=== PATIENT | female | born 1945 | race Caucasian/White ===

== ENCOUNTER 2016-07-30 17:50 | Inpatient (IN) | payer BC, OTHER ==
[~2016-07-30] VITALS: Ht 139.7 cm; Wt 87.5 kg
[~2016-07-30 17:50] MED LIST: ASPI81TA21 PO; CARV25TA2 PO; CHOL100010 PO; ESCI10TA17 PO; LISI-461 PO; MIRT15TA PO; MULTTAB PO; SPIR1TAB71 PO
[2016-07-30] MEDS ORDERED: SODIUM CHLORIDE 0.9% 1000ML 1,000 ML IV SCH (19:16)
--- NOTE | 2016-07-30 20:01 | DIAGNOSTIC IMAGING REPORT ---
CHEST ONE VIEW PORTABLE CLINICAL HISTORY: Stroke COMPARISON STUDY: No previous studies for comparison. FINDINGS: The heart is mildly enlarged. There is no failure. There is no focal pulmonary consolidation. There are no pleural effusions.[ IMPRESSION: No active disease in the chest. Electronically signed by: Rigo Fontana M.D. 07/30/2016 8:00 PM Dictated Date/Time: 07/30/2016 8:00 PM
--- NOTE | 2016-07-30 20:28 | DIAGNOSTIC IMAGING REPORT ---
CT HEAD WITHOUT CONTRAST (CT) CLINICAL HISTORY: Stroke COMPARISON STUDY: 02/19/2016 TECHNIQUE: Axial CT of the brain is performed from the vertex to the skull base. IV contrast was not administered for this examination. CT DOSE: 994.59 mGy.cm FINDINGS: No intra or extra-axial mass lesions are visualized. There is no CT evidence of acute cortical infarction. There is no evidence of midline shift. There is no acute hemorrhage. No calvarial fractures are visualized. There are patchy white matter hypodensities likely on a small vessel basis. There is no evidence of pathologic ventricular dilatation. There is mild right maxilla sinus mucosal thickening with chronic maxillary sinus wall thickening IMPRESSION: No acute intracranial findings Electronically signed by: Rigo Fontana M.D. 07/30/2016 8:27 PM Dictated Date/Time: 07/30/2016 8:26 PM
[2016-07-30 21:00] LABS: BASO % 0.2 %; BASO ABS # 0.02 K/uL (0-0.2); COMPLETE YES; EOS % 1.4 %; HEMATOCRIT 40.4 % (37-47); IG% 0.4 %; LYMPH % 37.8 %; LYMPH ABS # 3.03 K/uL (1.2-3.4); MEAN CELL VOLUME 92.9 fL (80-100); MEAN CORPUSCULAR HEMOGLOBIN 31.5 pg (25-34); MEAN CORPUSCULAR HGB CONC 33.9 g/dl (32-36); MEAN PLATELET VOLUME 9.3 fL (7.4-10.4); MONO % 8.9 %; NEUT % 51.3 %; PLATELET COUNT 207 K/uL (130-400); RED BLOOD COUNT 4.35 M/uL (4.2-5.4); WHITE BLOOD COUNT 8.01 K/uL (4.8-10.8)
[2016-07-30 21:08] LABS: BLOOD UREA NITROGEN 23 mg/dl (7-18); BUN/CREATININE RATIO 30.1 (10-20); CALCIUM 8.8 mg/dl (8.5-10.1); CARBON DIOXIDE 29 mmol/L (21-32); CHLORIDE 105 mmol/L (98-107); CREATININE 0.78 mg/dl (0.60-1.20); GLUCOSE 86 mg/dl (70-99); POTASSIUM 3.7 mmol/L (3.5-5.1); SODIUM 142 mmol/L (136-145)
[2016-07-30 21:12] LABS: PROTHROMBIN TIME (PATIENT) 11.1 SECONDS (9.0-12.0)
[2016-07-30] MEDS ORDERED: ASPIRIN 81 MG CHEW PO STA (21:24)
[2016-07-30] MEDS ORDERED: SODIUM CHLORIDE 0.9% 500ML 500 ML IV STA (21:25)
[2016-07-30 21:38] LABS: URINE APPEARANCE CLEAR (CLEAR); URINE BILIRUBIN NEG (NEG); URINE COLOR YELLOW; URINE NITRITE NEG (NEG); UROBILINOGEN NEG (NEG)
[2016-07-30 21:43] LABS: MANUAL MICROSCOPIC REQUIRED? NO; REVIEW REQ? NO
--- NOTE | 2016-07-30 22:14 | EMERGENCY ROOM VISIT NOTE ---
History Report prepared by Jayne: Namrata Chaudhary Under the Supervision of: Dr. North Albright M.D. First contact with patient: 19:16 Chief Complaint: NEURO SYMPTOMS Stated Complaint: LT ARM TINGLING, IMPARIED SPEECH, CONFUSION Nursing Triage Summary: Patient ambulatory to triage with the use of a cane and with her son. Patient states "My son is the one who said that I had to come here." Son states "Her left arm, for the last week or so, has been tingling and hurting her. She woke up Friday morning, saying there was somebody in her bed and that her arm was hurting, like someone punched her. She was really pale yesterday and not really coherent. She was groggy and unsteady on her feet. 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 Her speech is better today but she is tired and emotional." History of Present Illness The patient is a 70 year old female who presents to the Emergency Room with complaints of persistent neuro symptoms that began yesterday. The patient's son states that yesterday the patient appeared pale yesterday and was fatigued. He states that the patient has been increasingly confused recently. The patient's son states that that yesterday the patient began slurring her speech and had difficulty finishing her sentences. The patient's son states that the patient has been drowsy, and has not been herself. He states that the patient has been diagnosed with Alzheimer's recently, so he is unsure what may be related to the Alzheimer's. The patient's son states that the patient has complained of left arm pain and numbness and tingling to the arm. He states that her PCP told the patient that she had carpal tunnel. The patient's son states that he consulted the patient's PCP today and was instructed to bring the patient to the emergency department for further evaluation. Pt denies LOC, headache, fevers, chills, diaphoresis, visual changes, neck pain, chest pain, breathing difficulties, nausea, vomiting, abdominal pain, back pain, melena, hematochezia, urinary symptoms, lymphadenopathy, rash, or other complaints. Source of History: patient Onset: yesterday Position: other (global) Quality: other (neuro symptoms) Timing: other (persistent) Associated Symptoms: + fatigue Note: Associated Symptoms: increasingly confused, drowsy, slurring speech, difficulty finishing sentences. Review of Systems See HPI for pertinent positives and negatives. A total of ten systems were reviewed and were otherwise negative. Past Medical & Surgical Medical Problems: (1) Cognitive changes (2) Hypertension (3) Hypertension Family History No pertinent family history Social History Smoking Status: Former Smoker Alcohol Use: none Drug Use: none Marital Status: Housing Status: lives with family Occupation Status: retired Current/Historical Medications Scheduled Carvedilol (Coreg), 1 TAB PO BID Lisinopril (Zestril), 10 MG PO DAILY Spironolactone & Hydrochloroth (Spironolactone/Hydrochlor), 1 TAB PO DAILY Allergies Coded Allergies: No Known Allergies (Unverified , 07/30/16) Physical Exam Vital Signs Date Time Temp Pulse Resp B/P Pulse Ox O2 Delivery O2 Flow Rate FiO2 07/30/16 22:08 54 07/30/16 21:09 54 16 131/70 96 Room Air 07/30/16 20:00 55 18 146/68 98 Room Air 07/30/16 19:59 98 Room Air 07/30/16 18:05 36.5 57 18 137/84 97 Room Air Physical Exam GENERAL: Awake, alert, tired-appearing, in no distress. Speech is soft. HENT: Normocephalic, atraumatic. Oropharynx unremarkable. EYES: Normal conjunctiva. Sclera non-icteric. PERRL. EOMI. NECK: Supple. No nuchal rigidity. FROM. No JVD. RESPIRATORY: Clear to auscultation. CARDIAC: Regular rate, normal rhythm. Extremities warm and well perfused. Pulses equal. ABDOMEN: Soft, non-distended. No tenderness to palpation. No rebound or guarding. No masses. RECTAL: Deferred. MUSCULOSKELETAL: Chest examination reveals no tenderness. The back is symmetrical on inspection without obvious abnormality. There is no CVA tenderness to palpation. No joint edema. LOWER EXTREMITIES: 1+ lower extremity edema, chronic venous discoloration. Calves are equal size bilaterally and non-tender. NEURO: Normal sensorium. No sensory or motor deficits noted. No drift. SKIN: No rash or jaundice noted. Medical Decision & Procedures ER Provider Diagnostic Interpretation: X ray results as stated below per my interpretation and radiologist interpretation. Other radiology results as stated below per my review and radiologist interpretation CT HEAD WITHOUT CONTRAST (CT) CLINICAL HISTORY: Stroke COMPARISON STUDY: 02/19/2016 TECHNIQUE: Axial CT of the brain is performed from the vertex to the skull base. IV contrast was not administered for this examination. CT DOSE: 994.59 mGy.cm FINDINGS: No intra or extra-axial mass lesions are visualized. There is no CT evidence of acute cortical infarction. There is no evidence of midline shift. There is no acute hemorrhage. No calvarial fractures are visualized. There are patchy white matter hypodensities likely on a small vessel basis. There is no evidence of pathologic ventricular dilatation. There is mild right maxilla sinus mucosal thickening with chronic maxillary sinus wall thickening IMPRESSION: No acute intracranial findings Electronically signed by: Rigo Fontana M.D. 07/30/2016 8:27 PM Dictated Date/Time: 07/30/2016 8:26 PM CHEST ONE VIEW PORTABLE CLINICAL HISTORY: Stroke COMPARISON STUDY: No previous studies for comparison. FINDINGS: The heart is mildly enlarged. There is no failure. There is no focal pulmonary consolidation. There are no pleural effusions.[ IMPRESSION: No active disease in the chest. Electronically signed by: Rigo Fontana M.D. 07/30/2016 8:00 PM Dictated Date/Time: 07/30/2016 8:00 PM Laboratory Results 07/30/16 20:33 Red Blood Count 4.35, Mean Corpuscular Volume 92.9, Mean Corpuscular Hemoglobin 31.5, Mean Corpuscular Hemoglobin Concent 33.9, Mean Platelet Volume 9.3, Neutrophils (%) (Auto) 51.3, Lymphocytes (%) (Auto) 37.8, Monocytes (%) (Auto) 8.9, Eosinophils (%) (Auto) 1.4, Basophils (%) (Auto) 0.2, Neutrophils # (Auto) 4.11, Lymphocytes # (Auto) 3.03, Monocytes # (Auto) 0.71, Eosinophils # (Auto) 0.11, Basophils # (Auto) 0.02 07/30/16 20:33 Test 07/30/16 19:35 07/30/16 20:33 07/30/16 20:39 07/30/16 21:25 Bedside Glucose 85 mg/dl (70-90) White Blood Count 8.01 K/uL (4.8-10.8) Red Blood Count 4.35 M/uL (4.2-5.4) Hemoglobin 13.7 g/dL (12.0-16.0) Hematocrit 40.4 % (37-47) Mean Corpuscular Volume 92.9 fL (80-100) Mean Corpuscular Hemoglobin 31.5 pg (25-34) Mean Corpuscular Hemoglobin Concent 33.9 g/dl (32-36) Platelet Count 207 K/uL (130-400) Mean Platelet Volume 9.3 fL (7.4-10.4) Neutrophils (%) (Auto) 51.3 % Lymphocytes (%) (Auto) 37.8 % Monocytes (%) (Auto) 8.9 % Eosinophils (%) (Auto) 1.4 % Basophils (%) (Auto) 0.2 % Neutrophils # (Auto) 4.11 K/uL (1.4-6.5) Lymphocytes # (Auto) 3.03 K/uL (1.2-3.4) Monocytes # (Auto) 0.71 K/uL (0.11-0.59) Eosinophils # (Auto) 0.11 K/uL (0-0.5) Basophils # (Auto) 0.02 K/uL (0-0.2) RDW Standard Deviation 47.6 fL (36.4-46.3) RDW Coefficient of Variation 14.0 % (11.5-14.5) Immature Granulocyte % (Auto) 0.4 % Immature Granulocyte # (Auto) 0.03 K/uL (0.00-0.02) Prothrombin Time 11.1 SECONDS (9.0-12.0) Prothromb Time International Ratio 1.0 (0.9-1.1) Activated Partial Thromboplast Time 24.9 SECONDS (21.0-31.0) Partial Thromboplastin Ratio 1.0 Anion Gap 8.0 mmol/L (3-11) Est Creatinine Clear Calc Drug Dose 61.1 ml/min Estimated GFR () 88.0 Estimated GFR (Non- 76.0 BUN/Creatinine Ratio 30.1 (10-20) Calcium Level 8.8 mg/dl (8.5-10.1) Total Creatine Kinase 37 U/L (26-192) Creatine Kinase MB < 0.5 ng/ml (0.5-3.6) Creatine Kinase MB Ratio (0-3.0) Troponin I < 0.015 ng/ml (0-0.045) Bedside Prothrombin Time INR 1.0 (0.9-1.1) Urine Color YELLOW Urine Appearance CLEAR (CLEAR) Urine pH 5.0 (4.5-7.5) Urine Specific [place] 1.010 (1.000-1.030) Urine Protein NEG (NEG) Urine Glucose (UA) NEG (NEG) Urine Ketones NEG (NEG) Urine Occult Blood NEG (NEG) Urine Nitrite NEG (NEG) Urine Bilirubin NEG (NEG) Urine Urobilinogen NEG (NEG) Urine Leukocyte Esterase NEG (NEG) Laboratory results reviewed by me Medications Administered Medications (Trade) Dose Ordered Sig/Fred Route Start Time Stop Time Status Last Admin Dose Admin Sodium Chloride (Nss 1000ml) 1,000 ml @ 50 mls/hr Q20H IV 07/30/16 19:16 08/29/16 19:15 07/30/16 21:08 50 MLS/HR ECG Indication: other (neuro symptoms) Rate (beats per minute): 52 Rhythm: sinus bradycardia Findings: no acute ischemic change, no ectopy ED Course 1915: Ordered Sodium Chloride 1000 ml @ 50 mls/hr IV. 1930: The patient was evaluated in room B5. A complete history and physical exam was performed. 2034: I reevaluated the patient and she was stable at this time. We are awaiting her urine sample at this time. 2123: Ordered Aspirin 324 mg PO, Sodium Chloride 500 ml @ 999 mls/hr IV. 2125: I reevaluated the patient and she is resting comfortably. I discussed the exam findings with her and her son and I discussed the treatment plan. She verbalized complete understanding and agreement. She is going to be evaluated for further treatment. 2128: I discussed the patient's case with Juliet Vaughn. He is going to evaluate the patient for further treatment. Medical Decision Triage Nursing notes reviewed. The patient's presentation and history were concerning for weakness and strokelike symptoms. Etiologies such as metabolic, infection, hypo/hyperglycemia, electrolyte abnormalities, cardiac sources, intracerebral event, toxicologic, neurologic, as well as others were entertained. The patient was evaluated. She had some complaints of slurred speech and increased confusion. The patient had a nonfocal examination. She generally seemed weak. ECG was nonischemic. Bradycardia noted. Patient had an unremarkable CBC and chemistry panel Except for mild dehydration. She was hydrated. Chest x-ray and CT imaging were unremarkable. No acute CVA. No bleeding or mass effect noted. The patient has had symptoms for over 24 hours and therefore is not a candidate for thrombolytic consideration. The patient was given aspirin. Urinalysis was obtained and was unremarkable. Consultation was made with internal medicine. I discussed further evaluation and management in the hospital with family and the patient may return agreement. The patient was evaluated by internal medicine. The chart was completed utilizing [employer] Speech voice recognition software. Grammatical errors, random word insertions, pronoun errors, and incomplete sentences are an occasional consequence of this system due to software limitations, ambient noise, and hardware issues. Any formal questions or concerns about the content, text, or information contained within the body of this dictation should be directly addressed to the physician for clarification. Consults Time Called: 2125 Consulting Physician: Juliet Vaughn Returned Call: 2128 I discussed the patient's case with Juliet Vaughn. He is going to evaluate the patient for further treatment. Impression Primary Impression: Weakness Additional Impressions: Slurred speech Confusion Scribe Attestation The scribe's documentation has been prepared under my direction and personally reviewed by me in its entirety. I confirm that the note above accurately reflects all work, treatment, procedures, and medical decision making performed by me. Departure Information Dispostion Being Evaluated By Hospitalist Referrals Sarah Blake PA-C (PCP) Patient Instructions My [facility] Problem Qualifiers
[2016-07-30] MEDS ORDERED: ALUMINUM/MAGNESIUM/SIMETH (MAALOX MAX) 30 ML UDC PO PRN (22:15)
[2016-07-30] MEDS ORDERED: MAGNESIUM HYDROXIDE SUSP 30 ML UDC PO PRN (22:15)
[2016-07-30] MEDS ORDERED: POLYETHYLENE (MIRALAX) 17 GM PACK PO PRN (22:15)
[2016-07-30] MEDS ORDERED: ACETAMINOPHEN 325 MG TAB PO PRN (22:15)
[2016-07-30] MEDS ORDERED: ONDANSETRON INJ 2 MG/ML 2 ML VIAL IV PRN (22:15)
--- NOTE | 2016-07-30 22:25 | History and Physical ---
History & Physical Date & Time of Service: Jul 30, 2016 at 22:10 Chief Complaint: Lt Arm Tingling, Imparied Speech, Confusion Primary Care Physician: Sarah Blake PA-C History of Present Illness Source: patient, family, clinic records This is a 70 year old female with PMH of paroxysmal atrial fibrillation, chronic venous insufficiency, HTN, depression, chronic cognitive dysfunction brought in by her son due to patient's worsening mental status - as per son, she has been having short term memory loss - she is flat and does not answer in complete sentences anymore. She also states that she is seeing things, hallucinating - she sees people taking her pills away - she also sees people who are going to hurt her. Patient's son states that he now has her pill bottles and administers pills to her. To note, he states she takes three pills - Coreg, lisinopril, and Aldactone/HCTZ - she no longer takes Lexapro as she states there is a bad side effect - he states she feels more lethargic with Lexapro. He states that she had been complaining about right arm pain. On examination, patient is flat, reserved and does not make much eye contact. She has no slurring of speech, but does not answer fully, and at times does not make sense with answers. Denies any pain anywhere; no motor dysfunction noted. Past Medical/Surgical History Medical Problems: (1) Hypertension Status: Chronic Family History No pertinent family history Social History Smoking Status: Former Smoker Drug Use: none Marital Status: Housing status: lives with family Occupational Status: retired Immunizations History of Influenza Vaccine: N/A History of Tetanus Vaccine?: Yes Tetanus Immunization Date: Mar 29, 2010 History of Pneumococcal: Yes Pneumococcal Date: Mar 29, 2010 History of Hepatitis B Vaccine: No Multi-Drug Resistant Organisms History of MDRO: No Allergies Coded Allergies: No Known Allergies (Unverified , 07/30/16) Home Medications Scheduled Carvedilol (Coreg), 1 TAB PO BID Lisinopril (Zestril), 10 MG PO DAILY Spironolactone & Hydrochloroth (Spironolactone/Hydrochlor), 1 TAB PO DAILY Review of Systems Difficult to obtain ROS due to patient's mental status Physical Exam Vital Signs Date Time Temp Pulse Resp B/P Pulse Ox O2 Delivery O2 Flow Rate FiO2 07/30/16 21:09 54 16 131/70 96 Room Air 07/30/16 20:00 55 18 146/68 98 Room Air 07/30/16 19:59 98 Room Air 07/30/16 18:05 36.5 57 18 137/84 97 Room Air General Appearance: no apparent distress, + obese Head: normocephalic, atraumatic ENT: hearing grossly normal Respiratory/Chest: chest non-tender, lungs clear, normal breath sounds, no respiratory distress, no accessory muscle use Cardiovascular: no JVD, no murmur, normal peripheral pulses, + bradycardia Abdomen/GI: normal bowel sounds, non tender, soft Extremities/Musculoskelatal: + pedal edema, + swelling, + pertinent finding ( venous stasis, mild ulceration noted on the right lower extremity; not warm to touch, no significant erythema) Neurologic/Psych: alert, + depressed affect (flat affect, does not make eye contact, reserved, not answering in full sentences, no slurring of speech noted , no motor dysfunction noted, ), + disoriented (at times, patient has disorganized thoughts), + pertinent finding Skin: normal color Diagnostics Laboratory Results Results Past 24 Hours Test 07/30/16 19:35 07/30/16 20:33 07/30/16 20:39 07/30/16 21:25 Range/Units Bedside Glucose 85 70-90 mg/dl White Blood Count 8.01 4.8-10.8 K/uL Red Blood Count 4.35 4.2-5.4 M/uL Hemoglobin 13.7 12.0-16.0 g/dL Hematocrit 40.4 37-47 % Mean Corpuscular Volume 92.9 80-100 fL Mean Corpuscular Hemoglobin 31.5 25-34 pg Mean Corpuscular Hemoglobin Concent 33.9 32-36 g/dl Platelet Count 207 130-400 K/uL Mean Platelet Volume 9.3 7.4-10.4 fL Neutrophils (%) (Auto) 51.3 % Lymphocytes (%) (Auto) 37.8 % Monocytes (%) (Auto) 8.9 % Eosinophils (%) (Auto) 1.4 % Basophils (%) (Auto) 0.2 % Neutrophils # (Auto) 4.11 1.4-6.5 K/uL Lymphocytes # (Auto) 3.03 1.2-3.4 K/uL Monocytes # (Auto) 0.71 0.11-0.59 K/uL Eosinophils # (Auto) 0.11 0-0.5 K/uL Basophils # (Auto) 0.02 0-0.2 K/uL RDW Standard Deviation 47.6 36.4-46.3 fL RDW Coefficient of Variation 14.0 11.5-14.5 % Immature Granulocyte % (Auto) 0.4 % Immature Granulocyte # (Auto) 0.03 0.00-0.02 K/uL Prothrombin Time 11.1 9.0-12.0 SECONDS Prothromb Time International Ratio 1.0 0.9-1.1 Activated Partial Thromboplast Time 24.9 21.0-31.0 SECONDS Partial Thromboplastin Ratio 1.0 Sodium Level 142 136-145 mmol/L Potassium Level 3.7 3.5-5.1 mmol/L Chloride Level 105 98-107 mmol/L Carbon Dioxide Level 29 21-32 mmol/L Anion Gap 8.0 3-11 mmol/L Blood Urea Nitrogen 23 7-18 mg/dl Creatinine 0.78 0.60-1.20 mg/dl Est Creatinine Clear Calc Drug Dose 61.1 ml/min Estimated GFR () 88.0 Estimated GFR (Non- 76.0 BUN/Creatinine Ratio 30.1 10-20 Random Glucose 86 70-99 mg/dl Calcium Level 8.8 8.5-10.1 mg/dl Total Creatine Kinase 37 26-192 U/L Creatine Kinase MB < 0.5 0.5-3.6 ng/ml Creatine Kinase MB Ratio 0-3.0 Troponin I < 0.015 0-0.045 ng/ml Bedside Prothrombin Time INR 1.0 0.9-1.1 Urine Color YELLOW Urine Appearance CLEAR CLEAR Urine pH 5.0 4.5-7.5 Urine Specific [place] 1.010 1.000-1.030 Urine Protein NEG NEG Urine Glucose (UA) NEG NEG Urine Ketones NEG NEG Urine Occult Blood NEG NEG Urine Nitrite NEG NEG Urine Bilirubin NEG NEG Urine Urobilinogen NEG NEG Urine Leukocyte Esterase NEG NEG Microbiology Results 07/30/16 Urine Culture, Received Pending Diagnostic Radiology CT HEAD WITHOUT CONTRAST (CT) CLINICAL HISTORY: Stroke COMPARISON STUDY: 02/19/2016 TECHNIQUE: Axial CT of the brain is performed from the vertex to the skull base. IV contrast was not administered for this examination. CT DOSE: 994.59 mGy.cm FINDINGS: No intra or extra-axial mass lesions are visualized. There is no CT evidence of acute cortical infarction. There is no evidence of midline shift. There is no acute hemorrhage. No calvarial fractures are visualized. There are patchy white matter hypodensities likely on a small vessel basis. There is no evidence of pathologic ventricular dilatation. There is mild right maxilla sinus mucosal thickening with chronic maxillary sinus wall thickening IMPRESSION: No acute intracranial findings CXR normal EKG Junctional rhythm, bradycardic in the 50s Impression Assessment and Plan This is a 70 year old female with PMH of paroxysmal atrial fibrillation, chronic venous insufficiency, HTN, depression, chronic cognitive dysfunction brought in by her son due to patient's worsening mental status Cognitive Decline patient exhibits neuropsychiatric decline underlying Alzheimer dementia? Head CT performed, no acute findings possible Aricept? will consult neurology for this patient does have underlying dementia - was prescribed Lexapro, but due to lethargy, stopped taking this two years ago, and decline started then, as per son She is reserved, with flat affect - may benefit from SSRI anti-depressant if no side effects will check TSH, RPR, ammonia Hallucinations patient with auditory and visual hallucinations as per son patient's son mentions that these hallucinations are now worsening possibly related to depression, as well as underlying dementia psych input would be appreciated high risk for sundowning Paroxysmal Atrial Fibrillation currently in junctional rhythm not on anticoagulation - follows with cardiology will continue Coreg, but monitor for bradycardia HTN hold lisinopril and spironolactone-HCTZ continue Coreg monitor blood pressure DVT ppx Lovenox FULL CODE VTE Prophylaxis VTE Risk Assessment Done? Y/N: Yes Risk Level: Moderate
[2016-07-31] VITALS (13 sets, daily range): BP systolic 83–132; BP diastolic 57–82; PULSE 59–143; TEMP 36.3–36.9; O2SAT 94–97; Ht 139.7 cm; Wt 87.5 kg
[2016-07-31] MEDS: SODIUM CHLORIDE 0.9% 1000ML 1,000 ML IV SCH ×3 (01:58→15:03)
[2016-07-31] MEDS: CARVEDILOL 25 MG TAB PO SCH ×2 (05:07→20:22)
[2016-07-31 05:48] LABS: HEMATOCRIT 40.8 % (37-47); MEAN CELL VOLUME 92.3 fL (80-100); MEAN CORPUSCULAR HEMOGLOBIN 30.5 pg (25-34); MEAN CORPUSCULAR HGB CONC 33.1 g/dl (32-36); MEAN PLATELET VOLUME 9.2 fL (7.4-10.4); PLATELET COUNT 204 K/uL (130-400); RED BLOOD COUNT 4.42 M/uL (4.2-5.4); WHITE BLOOD COUNT 7.19 K/uL (4.8-10.8)
[2016-07-31] MEDS ORDERED: ENOXAPARIN 40 MG/0.4 ML SYR SC SCH (06:00)
[2016-07-31 06:16] LABS: BUN/CREATININE RATIO 23.6 (10-20); CALCIUM 8.9 mg/dl (8.5-10.1); CREATININE 0.77 mg/dl (0.60-1.20); POTASSIUM 3.8 mmol/L (3.5-5.1)
[2016-07-31 06:27] LABS: THYROID STIMULATING HORMONE 1.04 uIu/ml (0.300-4.500)
[2016-07-31] MEDS: ASPIRIN 81 MG ECTAB PO SCH (07:47)
[2016-07-31] MEDS ORDERED: SODIUM CHLORIDE 0.9% 500ML 500 ML IV SCH ×2 (08:00→11:15)
[2016-07-31] MEDS ORDERED: METOPROLOL TARTRATE 1 MG/ML VIAL IV STA (08:10)
--- NOTE | 2016-07-31 08:25 | Progress Note ---
Medicine Progress Note Date & Time of Visit: Jul 31, 2016 at 08:18. Subjective noted to be in A fib with RVR this morning BP systolic 100 on exam, sitting up in bed, having breakfast states she feels "ok" denies chest pain, dyspnea, dizziness, palpitations, nausea answers questions appropriately, but has difficulty with remote memory, address , date denies other symptoms Objective Last 8 Hrs Date Time Temp Pulse Resp B/P Pulse Ox O2 Delivery O2 Flow Rate FiO2 07/31/16 07:43 36.3 116 16 88/61 94 103/70 07/31/16 04:03 36.4 130 20 119/82 96 Room Air 07/31/16 04:00 97 Room Air 07/31/16 01:19 36.3 59 20 132/80 97 Room Air Physical Exam: General- oriented x 1, not in distress Head- atraumatic Eyes- PERRL, EOMI, anicteric ENT- oropharynx clear Neck- supple, no JVD, no adenopathy, no thyromegaly Lungs- clear breath sounds bilaterally Heart- tachycardic, irregularly, irregular rhythm; no murmurs Abdomen- normal bowel sounds, soft, nontender Extremities- no pretibial edema, no calf tenderness Neuro- alert, oriented x 1; EOMI; no facial palsy; no dysarthria; motor 5/5 bilaterally; sensation 100% Psych- normal affect, denies hallucinations Skin- warm & dry Laboratory Results: Last 24 Hours Test 07/30/16 19:35 07/30/16 20:33 07/30/16 20:39 07/30/16 21:25 Bedside Glucose 85 mg/dl White Blood Count 8.01 K/uL Red Blood Count 4.35 M/uL Hemoglobin 13.7 g/dL Hematocrit 40.4 % Mean Corpuscular Volume 92.9 fL Mean Corpuscular Hemoglobin 31.5 pg Mean Corpuscular Hemoglobin Concent 33.9 g/dl Platelet Count 207 K/uL Mean Platelet Volume 9.3 fL Neutrophils (%) (Auto) 51.3 % Lymphocytes (%) (Auto) 37.8 % Monocytes (%) (Auto) 8.9 % Eosinophils (%) (Auto) 1.4 % Basophils (%) (Auto) 0.2 % Neutrophils # (Auto) 4.11 K/uL Lymphocytes # (Auto) 3.03 K/uL Monocytes # (Auto) 0.71 K/uL Eosinophils # (Auto) 0.11 K/uL Basophils # (Auto) 0.02 K/uL RDW Standard Deviation 47.6 fL RDW Coefficient of Variation 14.0 % Immature Granulocyte % (Auto) 0.4 % Immature Granulocyte # (Auto) 0.03 K/uL Prothrombin Time 11.1 SECONDS Prothromb Time International Ratio 1.0 Activated Partial Thromboplast Time 24.9 SECONDS Partial Thromboplastin Ratio 1.0 Sodium Level 142 mmol/L Potassium Level 3.7 mmol/L Chloride Level 105 mmol/L Carbon Dioxide Level 29 mmol/L Anion Gap 8.0 mmol/L Blood Urea Nitrogen 23 mg/dl Creatinine 0.78 mg/dl Est Creatinine Clear Calc Drug Dose 61.1 ml/min Estimated GFR () 88.0 Estimated GFR (Non- 76.0 BUN/Creatinine Ratio 30.1 Random Glucose 86 mg/dl Calcium Level 8.8 mg/dl Total Creatine Kinase 37 U/L Creatine Kinase MB < 0.5 ng/ml Creatine Kinase MB Ratio Troponin I < 0.015 ng/ml Bedside Prothrombin Time INR 1.0 Urine Color YELLOW Urine Appearance CLEAR Urine pH 5.0 Urine Specific [place] 1.010 Urine Protein NEG Urine Glucose (UA) NEG Urine Ketones NEG Urine Occult Blood NEG Urine Nitrite NEG Urine Bilirubin NEG Urine Urobilinogen NEG Urine Leukocyte Esterase NEG Test 07/31/16 05:30 White Blood Count 7.19 K/uL Red Blood Count 4.42 M/uL Hemoglobin 13.5 g/dL Hematocrit 40.8 % Mean Corpuscular Volume 92.3 fL Mean Corpuscular Hemoglobin 30.5 pg Mean Corpuscular Hemoglobin Concent 33.1 g/dl RDW Standard Deviation 47.5 fL RDW Coefficient of Variation 14.1 % Platelet Count 204 K/uL Mean Platelet Volume 9.2 fL Prothrombin Time 11.0 SECONDS Prothromb Time International Ratio 1.0 Sodium Level 146 mmol/L Potassium Level 3.8 mmol/L Chloride Level 109 mmol/L Carbon Dioxide Level 28 mmol/L Anion Gap 9.0 mmol/L Blood Urea Nitrogen 18 mg/dl Creatinine 0.77 mg/dl Est Creatinine Clear Calc Drug Dose 57.6 ml/min Estimated GFR () 89.4 Estimated GFR (Non- 77.1 BUN/Creatinine Ratio 23.6 Random Glucose 100 mg/dl Calcium Level 8.9 mg/dl Magnesium Level 2.0 mg/dl Ammonia 19.0 umol/L Thyroid Stimulating Hormone (TSH) 1.040 uIu/ml Date/Time Source Procedure Growth Status 07/30/16 21:25 Urine,Catheterized Urine Culture Pending Received Assessment & Plan This is a 70 year old female with PMH of paroxysmal atrial fibrillation, HTN, depression, chronic cognitive dysfunction brought in by her son due to patient' s worsening mental status Cognitive Decline possible underlying Alzheimer dementia, in the setting of Depression CT head: no acute process TSH, ammonia: negative - Neurology consulted PT/OT Hallucinations patient with worsening auditory and visual hallucinations as per son possibly related to depression, as well as underlying dementia - Psych consulted Paroxysmal Atrial Fibrillation admission EKG showed junctional rhythm early this morning, converted to a fib in RVR, asymptomatic, BP borderline apparently, not on anticoagulation - follows with cardiology but patient could not provide Cushion Gum Applicator's name - received usual Coreg 25mg this morning ordered NSS 500cc bolus with Lopressor 2.5mg IV - will consult Cardiology obtain echo HTN BP marginal HOLD lisinopril and spironolactone-HCTZ continue Coreg DVT ppx Lovenox Disposition pending PT/OT evals Current Inpatient Medications: Current Inpatient Medications Medications (Trade) Dose Ordered Sig/Fred Route Start Time Stop Time Status Last Admin Dose Admin Enoxaparin Sodium 40 mg 40 mg Q24H SC 07/31/16 06:00 08/30/16 05:59 07/31/16 05:23 40 MG Sodium Chloride (Nss 1000ml) 1,000 ml @ 80 mls/hr [id number] IV 07/30/16 22:02 08/29/16 22:01 07/31/16 01:58 80 MLS/HR Acetaminophen (Tylenol Tab) 650 mg Q4H PRN PO 07/30/16 22:15 08/29/16 22:14 Al Hydrox/Mg Hydrox/Simethicone (Maalox Max Susp) 15 ml Q4H PRN PO 07/30/16 22:15 08/29/16 22:14 Magnesium Hydroxide (Milk Of Magnesia Susp) 30 ml Q12H PRN PO 07/30/16 22:15 08/29/16 22:14 Ondansetron HCl (Zofran Inj) 4 mg Q6H PRN IV 07/30/16 22:15 08/29/16 22:14 Aspirin (Ecotrin Tab) 81 mg QAM PO 07/31/16 09:00 08/30/16 08:59 07/31/16 07:47 81 MG Polyethylene (Miralax Powder Packet) 17 gm DAILY PRN PO 07/30/16 22:15 08/29/16 22:14 Carvedilol 25 mg 25 mg BID PO 07/31/16 09:00 08/30/16 08:59 07/31/16 05:07 25 MG Sodium Chloride (Nss 500ml) 500 ml @ 999 mls/hr Q31M IV 07/31/16 08:00 07/31/16 08:30 07/31/16 07:50 999 MLS/HR
[2016-07-31] MEDS ORDERED: METOPROLOL TARTRATE 1 MG/ML VIAL IV ONE (09:30)
[2016-07-31] MEDS ORDERED: DILTIAZEM HCL 5 MG/ML 5 ML VIAL IV STA (11:15)
[2016-07-31] MEDS ORDERED: HEPARIN IV LOW DOSE NO BOLUS SCH (11:45)
[2016-07-31] MEDS ORDERED: DILTIAZEM HCL INJ 10 MG in SYRINGE 0 ML IV SCH (11:45)
[2016-07-31] MEDS ORDERED: HEPARIN 25,000 UNIT/500ML D5W 500 ML IV PRN (12:15)
--- NOTE | 2016-07-31 12:19 | Psychiatric Consultation ---
Consultation Identifying Data 70-year-old white female who lives with her son in [place], has a history of multiple medical problems and depression treated by her PCP, who presented to the emergency room yesterday with confusion, left arm tingling, and impaired speech and was admitted to the hospitalist service. Neurology was consulted for dementia, and psychiatry for hallucinations. Chief Complaint "I don't know". History of Present Illness According to records, the patient presented to the emergency room yesterday with her son, who reported that for the past week or so, she had tingling and pain in her left arm. She had also been confused, seeing people when no one was there, was groggy and unsteady on her feet, speech was slurred, and she was very pale and tired. He stated she recently been diagnosed with Alzheimer's dementia, and that her PCP also thought she had carpal tunnel syndrome. He had contacted her PCP yesterday, and was advised to bring her to the hospital. She had a head CT in the emergency room which showed patchy white matter hypodensities, likely on a small vessel basis, and mild right maxillary sinus mucosal thickening. She had a chest x-ray which showed no active disease, and an EKG which showed sinus bradycardia. Labs showed her to be mildly dehydrated. Her exam was nonfocal, with generalized weakness and confusion, oriented only to herself. This morning, she was in A. fib with RVR, but was able to sit up in bed and eat breakfast, and denied acute symptoms. The psychiatric liaison nurse spoke with her step son Jayjay, who reported that she declined after her 2 years ago, as within 6 months of his , she started to report on things to her family, saying that there were people living in her shed and that she thought people were stealing her belongings. Her family have noted at she will misplace things, and then accuse people of stealing them. She's on outpatient physician in January 2016 for depression, and took Lexapro briefly but stopped it due to side effects. He also reported that she been on Remeron in the past but details are unknown. He has not noticed recent changes in her mood. On my assessment, the patient was seen with her son Chris at the bedside, whom she lives with. He states that he to noticed a decline after her 2 years ago. He states that much of the time she is "happy go valentin, smiles and laughs," but that she gets upset a couple times a week and is tearful when talking about missing her ex-. He reports about 2 months of disturbed sleep, where she is staying up at night and then sleeping during the day. He also reports that she sees people at times that others do not, has told him she sees people in the yard or in the house, and he has wondered if these people are ghosts, as 2 people have in that house. She often misplaces things, and then things other people are stealing them, such as her pills and money. The patient states that sometimes she has a feeling that she is going to see someone, and then will see a person walk by, although she has insight that the person is not really all. She says it is the same person every time, and the person does not speak or interact with her. She denies that it bothers her, and says "I just drop it." She does admit to feeling depressed, saying her mood is "not good, I'm not happy no more." She reports anhedonia, crying spells , disrupted sleep, and low energy. She denies suicidal thoughts, homicidal thoughts, auditory hallucinations, and paranoia. Her son states that she was prescribed Lexapro 10 mg by a physician about 6 months ago, but only took 1 dose , and then he stopped giving it to her because "she was not acting right at all , had diarrhea and didn't feel good and went and laid down, and she never does that." Her son expresses some frustration with her outpatient physician, stating that he came to the hospital because "I want answers, I want to know what's going on with her." Her son keeps her medications and administers them to her. She does not drive, and does not go out without others assisting her. Family has noticed memory problems for many years, but it worsened acutely 2 years ago after her . She has significant short-term memory problems which have been increasing in the past few months, and last the same question 6-8 times in a two-hour period. She is able to remember remote events from her childhood, and is able to recognize people that she knows. Past Psychiatric History Current OP Treatment: no current treatment Depression diagnosed and treated by PCP. No history of suicide attempts, self injury, violence, or psychiatric hospitalizations. Previous medication trials include Lexapro 10 mg, which she took only once, and her son then stopped due to her not feeling well that day. She may have also been on Remeron at some point in the past, but details are unknown. Past Medical/Surgical History Problem List: (1) Hypertension (2) Cognitive changes (3) Confusion (4) Weakness Allergies Allergies: Coded Allergies: No Known Allergies (Unverified , 07/30/16) Home Medications Scheduled Carvedilol (Coreg), 1 TAB PO BID Lisinopril (Zestril), 10 MG PO DAILY Spironolactone & Hydrochloroth (Spironolactone/Hydrochlor), 1 TAB PO DAILY Family History No pertinent family history Alcohol Use Alcohol Use In Past 12 Months: No Substance History No history of substance abuse. 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 Children: 1 biological son, Chris, and a Jayjay burdick Legal History: none Abuse History: none Additional Comments: The patient was for 30 years until her 2 years ago. She currently lives with her son Chris in [place]. Review of Systems Attempted to review 10 systems, but the patient was confused and unable to participate. Examination Vital Signs Vital Signs Past 12 Hours Date Time Temp Pulse Resp B/P Pulse Ox O2 Delivery O2 Flow Rate FiO2 07/31/16 11:28 36.6 102 16 83/57 95 07/31/16 09:15 143 118/77 07/31/16 09:11 143 118/77 07/31/16 08:21 140 100/70 07/31/16 07:43 36.3 116 16 88/61 94 103/70 07/31/16 04:03 36.4 130 20 119/82 96 Room Air 07/31/16 04:00 97 Room Air 07/31/16 01:19 36.3 59 20 132/80 97 Room Air Laboratory Results Last 24 Hours Test 07/30/16 19:35 07/30/16 20:33 07/30/16 20:39 07/30/16 21:25 Bedside Glucose 85 mg/dl White Blood Count 8.01 K/uL Red Blood Count 4.35 M/uL Hemoglobin 13.7 g/dL Hematocrit 40.4 % Mean Corpuscular Volume 92.9 fL Mean Corpuscular Hemoglobin 31.5 pg Mean Corpuscular Hemoglobin Concent 33.9 g/dl Platelet Count 207 K/uL Mean Platelet Volume 9.3 fL Neutrophils (%) (Auto) 51.3 % Lymphocytes (%) (Auto) 37.8 % Monocytes (%) (Auto) 8.9 % Eosinophils (%) (Auto) 1.4 % Basophils (%) (Auto) 0.2 % Neutrophils # (Auto) 4.11 K/uL Lymphocytes # (Auto) 3.03 K/uL Monocytes # (Auto) 0.71 K/uL Eosinophils # (Auto) 0.11 K/uL Basophils # (Auto) 0.02 K/uL RDW Standard Deviation 47.6 fL RDW Coefficient of Variation 14.0 % Immature Granulocyte % (Auto) 0.4 % Immature Granulocyte # (Auto) 0.03 K/uL Prothrombin Time 11.1 SECONDS Prothromb Time International Ratio 1.0 Activated Partial Thromboplast Time 24.9 SECONDS Partial Thromboplastin Ratio 1.0 Sodium Level 142 mmol/L Potassium Level 3.7 mmol/L Chloride Level 105 mmol/L Carbon Dioxide Level 29 mmol/L Anion Gap 8.0 mmol/L Blood Urea Nitrogen 23 mg/dl Creatinine 0.78 mg/dl Est Creatinine Clear Calc Drug Dose 61.1 ml/min Estimated GFR () 88.0 Estimated GFR (Non- 76.0 BUN/Creatinine Ratio 30.1 Random Glucose 86 mg/dl Calcium Level 8.8 mg/dl Total Creatine Kinase 37 U/L Creatine Kinase MB < 0.5 ng/ml Creatine Kinase MB Ratio Troponin I < 0.015 ng/ml Bedside Prothrombin Time INR 1.0 Urine Color YELLOW Urine Appearance CLEAR Urine pH 5.0 Urine Specific [place] 1.010 Urine Protein NEG Urine Glucose (UA) NEG Urine Ketones NEG Urine Occult Blood NEG Urine Nitrite NEG Urine Bilirubin NEG Urine Urobilinogen NEG Urine Leukocyte Esterase NEG Test 07/31/16 05:30 07/31/16 11:50 White Blood Count 7.19 K/uL Red Blood Count 4.42 M/uL Hemoglobin 13.5 g/dL Hematocrit 40.8 % Mean Corpuscular Volume 92.3 fL Mean Corpuscular Hemoglobin 30.5 pg Mean Corpuscular Hemoglobin Concent 33.1 g/dl RDW Standard Deviation 47.5 fL RDW Coefficient of Variation 14.1 % Platelet Count 204 K/uL Mean Platelet Volume 9.2 fL Prothrombin Time 11.0 SECONDS Prothromb Time International Ratio 1.0 Sodium Level 146 mmol/L Potassium Level 3.8 mmol/L Chloride Level 109 mmol/L Carbon Dioxide Level 28 mmol/L Anion Gap 9.0 mmol/L Blood Urea Nitrogen 18 mg/dl Creatinine 0.77 mg/dl Est Creatinine Clear Calc Drug Dose 57.6 ml/min Estimated GFR () 89.4 Estimated GFR (Non- 77.1 BUN/Creatinine Ratio 23.6 Random Glucose 100 mg/dl Calcium Level 8.9 mg/dl Magnesium Level 2.0 mg/dl Ammonia 19.0 umol/L Vitamin B12 Level 240 pg/mL Thyroid Stimulating Hormone (TSH) 1.040 uIu/ml Mental Examination During interview pt is: cooperative, other (alert and oriented to self only) Appearance: other (overweight, dressed in hospital gown, lying in bed in no acute distress) Eye contact is: fair Motor behavior is: no abnormal motor movements Speech: other (minimal) Affect: blunted Mood is: other ("not good") Thought process: tangential, other (patient was able to answer some questions appropriately, but at other times answered with unrelated information, and appeared easily confused) Thought content: reality based without delusions Suicidal thought are: denied Homicidal thoughts are: denied Hallucinations: denies auditory, denies visual (denies current hallucinations, but has intermittent visual hallucinations of people that she recognizes are not real) Cognition: other (memory and attention are both impaired) Insight: impaired Judgement: impaired Impression / Recommendations Impression Depression is present and may be contributing to cognitive limitations, although it also appears she has significant memory impairment and likely dementia as well. There may also be a component of delirium complicating the picture, as she has had this regulated sleep and intermittent visual hallucinations. Recommendations (1) Depression -Discussed the diagnosis with the patient and her son, and the recommendations for an antidepressant. They're willing for a trial of venlafaxine XR, and we reviewed the risks, benefits, and side effects. We will hold off on starting this until she is more medically stable, but she can start at 37.5 mg daily. She should follow up with her PCP after discharge. -No criteria for inpatient psychiatric treatment. (2) Delirium Patient has impaired attention and cognitive limitations, and her visual hallucinations may well be due to encephalopathy. Recommend frequent reorientation, use of familiar staff when available, maintenance of normal sleep /wake cycles, and avoidance of deliria genic medications. (3) Dementia Family reports long-standing cognitive disturbance, with worsening over the past several months. Family would benefit from education about dementia, and ongoing outpatient follow-up.
[2016-07-31 12:28] LABS: BASO % 0.1 %; BASO ABS # 0.01 K/uL (0-0.2); EOS % 1.1 %; HEMATOCRIT 40.9 % (37-47); IG% 0.1 %; LYMPH % 31.1 %; LYMPH ABS # 2.32 K/uL (1.2-3.4); MEAN CELL VOLUME 91.9 fL (80-100); MEAN CORPUSCULAR HEMOGLOBIN 31.5 pg (25-34); MEAN PLATELET VOLUME 8.9 fL (7.4-10.4); MONO % 7.5 %; NEUT % 60.1 %; PLATELET COUNT 219 K/uL (130-400); RED BLOOD COUNT 4.45 M/uL (4.2-5.4); WHITE BLOOD COUNT 7.47 K/uL (4.8-10.8)
[2016-07-31 12:34] LABS: COMPLETE YES; MEAN CORPUSCULAR HGB CONC 34.2 g/dl (32-36)
[2016-07-31] MEDS ORDERED: HEPARIN IV BOLUS 4,000 UNIT in SYRINGE 0 ML IV ONE (13:15)
[2016-07-31 13:19] LABS: INR 1.1 (0.9-1.1); PARTIAL THROMBOPLASTIN RATIO 1.1; PROTHROMBIN TIME (PATIENT) 11.3 SECONDS (9.0-12.0)
[2016-07-31] MEDS ORDERED: DILTIAZEM BOLUS / DRIP IV STA (14:27)
--- NOTE | 2016-07-31 14:27 | Neurology Consultation ---
Neurology Consultation Date of Consultation: Jul 31, 2016. Attending Physician: Dion Key MD Primary Care Physician: Sarah Blake PA-C Reason for Consultation: cognitive decline History of Present Illness Source: patient Nicole is a 70 year old female with PMH afib, chronic venous insufficiency, HTN, depression, chronic cognitive dysfunction brought in by her son due to patient's worsening mental status according to chart. No family currently in room. She is unable to finish sentences. She also states that she is seeing things in the room that aren't there but not currently. She doesn't think she has any new medications. According to son her medications are given to her as follows. Coreg, lisinopril, and Aldactone/HCTZ. She was on Lexapro but she thought it made her feel funny. He states that she had been complaining about right arm pain. Currently she is eating her lunch but she states she is not sure what she should do next. When questioned about her health history she is unable to tell about pills or previous surgeries but does say she is falling alot. She states she uses a walker at home. Her son lives with her and she lost her 2 years ago. Past Medical/Surgical History Medical Problems: (1) Confusion Status: Acute (2) Contusion, lip Status: Acute (3) Fall Status: Acute (4) Hematoma of frontal scalp Status: Acute (5) Slurred speech Status: Acute (6) Weakness Status: Acute Social History Smoking Status: Never smoker Drug Use: none Marital Status: Housing Status: lives with family Occupation Status: retired Allergies Coded Allergies: No Known Allergies (Unverified , 07/30/16) Current Inpatient Medications Current Inpatient Medications Medications (Trade) Dose Ordered Sig/Fred Route Start Time Stop Time Status Last Admin Dose Admin Sodium Chloride (Nss 1000ml) 1,000 ml @ 80 mls/hr [id number] IV 07/30/16 22:02 08/29/16 22:01 07/31/16 08:57 80 MLS/HR Acetaminophen (Tylenol Tab) 650 mg Q4H PRN PO 07/30/16 22:15 08/29/16 22:14 Al Hydrox/Mg Hydrox/Simethicone (Maalox Max Susp) 15 ml Q4H PRN PO 07/30/16 22:15 08/29/16 22:14 Magnesium Hydroxide (Milk Of Magnesia Susp) 30 ml Q12H PRN PO 07/30/16 22:15 08/29/16 22:14 Ondansetron HCl (Zofran Inj) 4 mg Q6H PRN IV 07/30/16 22:15 08/29/16 22:14 Aspirin (Ecotrin Tab) 81 mg QAM PO 07/31/16 09:00 08/30/16 08:59 07/31/16 07:47 81 MG Polyethylene (Miralax Powder Packet) 17 gm DAILY PRN PO 07/30/16 22:15 08/29/16 22:14 Carvedilol 25 mg 25 mg BID PO 07/31/16 09:00 08/30/16 08:59 07/31/16 05:07 25 MG Heparin Sodium/ Dextrose (Heparin 25,000 Unit/500ml D5W) 500 ml @ 15 mls/hr Q24H PRN IV 07/31/16 12:15 08/30/16 12:14 07/31/16 12:50 15 MLS/HR Physical Exam Vital Signs (Past 24 Hrs): Date Time Temp Pulse Resp B/P Pulse Ox O2 Delivery O2 Flow Rate FiO2 07/31/16 13:34 36.9 110 16 116/81 96 Room Air 07/31/16 12:00 99 109/68 07/31/16 11:28 36.6 102 16 83/57 95 07/31/16 09:15 143 118/77 07/31/16 09:11 143 118/77 07/31/16 08:21 140 100/70 07/31/16 07:43 36.3 116 16 88/61 94 103/70 07/31/16 04:03 36.4 130 20 119/82 96 Room Air 07/31/16 04:00 97 Room Air 07/31/16 01:19 36.3 59 20 132/80 97 Room Air 07/30/16 22:08 54 07/30/16 22:01 60 17 140/60 97 Room Air 07/30/16 21:09 54 16 131/70 96 Room Air 07/30/16 20:00 55 18 146/68 98 Room Air 07/30/16 19:59 98 Room Air 07/30/16 18:05 36.5 57 18 137/84 97 Room Air Physical Exam: Constitutional: , appearance nourished, obese Ears, Nose, Mouth and Throat: mucous membranes moist, no injection and skin normal, eyes normal Cardiovascular: irregular Respiratory: clear to auscultation (CTA) and no rales, rhonchi or wheeze Musculoskeletal: bilateral peripheral edema and venous stasis, bilaterally hand deformities arthritic changes Skin: no stigmata of neurocutaneous disease noted and normal and intact, venous stasis LE Eyes: extraocular muscles intact (EOMI) and pupils equal, round and reactive to light (PERRL) NEUROLOGIC EXAMINATION: Mental status: does not know where she is, does not know the year, can't say no ifs ands or buts, she does close her eye sticks out tongue and points to the ceiling with her right hand Oriented to person Speech fluent with no evidence of aphasia Cranial Nerves smile and eye brow raise symmetric, tongue midline Reflexes: Deep tendon reflexes were symmetrical and graded 2/5. Plantar responses were neutral Sensory: decreased sensation to cool touch from ankles to toes, GT proprioception loss bilaterally Coordination: finger to nose with no bi pass or tremor Gait/Stance: Posture sitting in bed Motor: Negative for pronator drift of out stretched arms with eyes closed. Strength: biceps triceps hand enrollment specialist bilaterally 5/5, hip flex 4/5 plantar flex ext 5/5 bilaterally equal Laboratory Results Past 24 Hours: 07/31/16 12:15 Red Blood Count 4.45, Mean Corpuscular Volume 91.9, Mean Corpuscular Hemoglobin 31.5, Mean Corpuscular Hemoglobin Concent 34.2, Mean Platelet Volume 8.9, Neutrophils (%) (Auto) 60.1, Lymphocytes (%) (Auto) 31.1, Monocytes (%) (Auto) 7.5, Eosinophils (%) (Auto) 1.1, Basophils (%) (Auto) 0.1, Neutrophils # (Auto) 4.49, Lymphocytes # (Auto) 2.32, Monocytes # (Auto) 0.56, Eosinophils # (Auto) 0.08, Basophils # (Auto) 0.01 07/31/16 05:30 Test 07/30/16 19:35 07/30/16 20:33 07/30/16 20:39 07/30/16 21:25 Bedside Glucose 85 mg/dl (70-90) Total Creatine Kinase 37 U/L (26-192) Creatine Kinase MB < 0.5 ng/ml (0.5-3.6) Creatine Kinase MB Ratio (0-3.0) Troponin I < 0.015 ng/ml (0-0.045) Bedside Prothrombin Time INR 1.0 (0.9-1.1) Urine Color YELLOW Urine Appearance CLEAR (CLEAR) Urine pH 5.0 (4.5-7.5) Urine Specific [place] 1.010 (1.000-1.030) Urine Protein NEG (NEG) Urine Glucose (UA) NEG (NEG) Urine Ketones NEG (NEG) Urine Occult Blood NEG (NEG) Urine Nitrite NEG (NEG) Urine Bilirubin NEG (NEG) Urine Urobilinogen NEG (NEG) Urine Leukocyte Esterase NEG (NEG) Test 07/31/16 05:30 07/31/16 12:15 07/31/16 12:55 Anion Gap 9.0 mmol/L (3-11) Est Creatinine Clear Calc Drug Dose 57.6 ml/min Estimated GFR () 89.4 Estimated GFR (Non- 77.1 BUN/Creatinine Ratio 23.6 (10-20) Calcium Level 8.9 mg/dl (8.5-10.1) Magnesium Level 2.0 mg/dl (1.8-2.4) Ammonia 19.0 umol/L (11-32) Vitamin B12 Level 240 pg/mL (211-911) Thyroid Stimulating Hormone (TSH) 1.040 uIu/ml (0.300-4.500) White Blood Count 7.47 K/uL (4.8-10.8) Red Blood Count 4.45 M/uL (4.2-5.4) Hemoglobin 14.0 g/dL (12.0-16.0) Hematocrit 40.9 % (37-47) Mean Corpuscular Volume 91.9 fL (80-100) Mean Corpuscular Hemoglobin 31.5 pg (25-34) Mean Corpuscular Hemoglobin Concent 34.2 g/dl (32-36) Platelet Count 219 K/uL (130-400) Mean Platelet Volume 8.9 fL (7.4-10.4) Neutrophils (%) (Auto) 60.1 % Lymphocytes (%) (Auto) 31.1 % Monocytes (%) (Auto) 7.5 % Eosinophils (%) (Auto) 1.1 % Basophils (%) (Auto) 0.1 % Neutrophils # (Auto) 4.49 K/uL (1.4-6.5) Lymphocytes # (Auto) 2.32 K/uL (1.2-3.4) Monocytes # (Auto) 0.56 K/uL (0.11-0.59) Eosinophils # (Auto) 0.08 K/uL (0-0.5) Basophils # (Auto) 0.01 K/uL (0-0.2) RDW Standard Deviation 47.8 fL (36.4-46.3) RDW Coefficient of Variation 14.1 % (11.5-14.5) Immature Granulocyte % (Auto) 0.1 % Immature Granulocyte # (Auto) 0.01 K/uL (0.00-0.02) Prothrombin Time 11.3 SECONDS (9.0-12.0) Prothromb Time International Ratio 1.1 (0.9-1.1) Activated Partial Thromboplast Time 28.9 SECONDS (21.0-31.0) Partial Thromboplastin Ratio 1.[address] head- No acute intracranial findings Impression 70 year old female with declining mentation Plan 1. MRI with and without brain for any structure or lesions 2. TTE pending 3. psychiatry recommend start of antidepressant and follow up for increases with PCP 4. may benefit from Aricept but with the hallucinations would not start at this time 5. PT/OT for discharge needs 6. labs B12, RPR, urinalysis all WNL 7. will see as outpatient neurology Divya Doe PAC hi in 3-4 weeks further recommendations to follow I have seen and discussed above patient with Dr Divya Pearl, neurology Likely AD, await MRI to see if significant vascular component, although prominent language dysfunction suggests AD. There is also a component of mild depression. Labs for treatable etiologies. MD Arpan
[2016-07-31] MEDS: DILTIAZEM HCL INJ 125 MG in DEXTROSE 5% 100ML IV PRN (14:57)
[2016-07-31] MEDS ORDERED: GADAVIST IV PRN (23:15)
[2016-08-01] VITALS (11 sets, daily range): BP systolic 96–129; BP diastolic 62–88; PULSE 81–107; TEMP 35.5–36.5; O2SAT 95–98
[2016-08-01] MEDS: DILTIAZEM HCL INJ 125 MG in DEXTROSE 5% 100ML IV PRN (03:40)
--- NOTE | 2016-08-01 07:08 | DIAGNOSTIC IMAGING REPORT ---
MRI OF THE BRAIN WITHOUT AND WITH IV CONTRAST CLINICAL HISTORY: Declining mental status. COMPARISON STUDY: Noncontrast head CT dated 07/30/2016 TECHNIQUE: MRI of the brain was performed from the vertex to the skull base utilizing various T1 and T2 weighted sequences. Following the IV administration of 8.5 mL of Gadavist contrast, additional enhanced images were obtained. FINDINGS: Sagittal T1, axial diffusion, proton density and T2 weighted axial, coronal FLAIR, and pre and post axial T1-weighted images were acquired. These were supplemented with post gadolinium coronal T1 weighted images. No intra or extra-axial mass lesions are visualized. Axial diffusion-weighted images reveal no evidence of acute or subacute infarction. There is no evidence of ventricular dilatation. Proton density T2-weighted and FLAIR images reveal scattered foci of increased T2 signal within the white matter, likely on a small vessel basis. There are no abnormal flow voids. There is no evidence of pathologic enhancement. There is chronic mucosal disease involving the right maxillary sinus. There is a tiny sphenoid sinus retention cyst. IMPRESSION: 1. No acute intracranial findings 2. No evidence of intracranial mass 3. No evidence of acute or subacute infarction 4. Scattered foci of increased T2 signal within the white matter, likely on a small vessel basis Electronically signed by: Rigo Fontana M.D. 08/01/2016 7:07 AM Dictated Date/Time: 08/01/2016 7:04 AM
[2016-08-01 07:21] LABS: HEMATOCRIT 37.7 % (37-47); MEAN CELL VOLUME 92.9 fL (80-100); MEAN CORPUSCULAR HEMOGLOBIN 30.8 pg (25-34); MEAN CORPUSCULAR HGB CONC 33.2 g/dl (32-36); MEAN PLATELET VOLUME 9.5 fL (7.4-10.4); PLATELET COUNT 182 K/uL (130-400); RED BLOOD COUNT 4.06 M/uL (4.2-5.4); WHITE BLOOD COUNT 6.12 K/uL (4.8-10.8)
[2016-08-01 07:33] LABS: PARTIAL THROMBOPLASTIN RATIO 1.7
[2016-08-01] MEDS: ASPIRIN 81 MG ECTAB PO SCH (07:40)
[2016-08-01] MEDS: CARVEDILOL 25 MG TAB PO SCH ×2 (07:40→20:36)
[2016-08-01] MEDS ORDERED: HEPARIN IV BOLUS 2,000 UNIT in SYRINGE 0 ML IV ONE (09:30)
[2016-08-01 11:13] LABS: BUN/CREATININE RATIO 25.6 (10-20); CALCIUM 8.3 mg/dl (8.5-10.1); CREATININE 0.6 mg/dl (0.60-1.20); MAGNESIUM 1.9 mg/dl (1.8-2.4); POTASSIUM 3.4 mmol/L (3.5-5.1)
--- NOTE | 2016-08-01 11:28 | Progress Note ---
Medicine Progress Note Date & Time of Visit: Aug 01, 2016 at 11:23. Subjective noted to have agitation last night better this morning son at bedside states she feels fine today oriented to person and place denies chest pain, dyspnea, palpitations, dizziness states she "feels dreary" being in the hospital patient reassured calm, cooperative Objective Last 8 Hrs Date Time Temp Pulse Resp B/P Pulse Ox O2 Delivery O2 Flow Rate FiO2 08/01/16 08:00 Room Air 08/01/16 07:20 36.4 94 20 96/63 96 Room Air 08/01/16 04:23 35.5 81 18 106/68 96 Room Air 08/01/16 04:00 95 Room Air Physical Exam: General- oriented x 1, not in distress Head- atraumatic Eyes- PERRL, EOMI, anicteric ENT- oropharynx clear Neck- supple, no JVD, no adenopathy, no thyromegaly Lungs- clear breath sounds bilaterally Heart- tachycardic, irregularly, irregular rhythm; no murmurs Abdomen- normal bowel sounds, soft, nontender Extremities- no pretibial edema, no calf tenderness Neuro- alert, oriented x 1; EOMI; no facial palsy; no dysarthria; motor 5/5 bilaterally; sensation 100% Psych- normal affect, denies hallucinations Skin- warm & dry Laboratory Results: Last 24 Hours Test 07/31/16 12:15 07/31/16 12:55 08/01/16 06:44 White Blood Count 7.47 K/uL 6.12 K/uL Red Blood Count 4.45 M/uL 4.06 M/uL Hemoglobin 14.0 g/dL 12.5 g/dL Hematocrit 40.9 % 37.7 % Mean Corpuscular Volume 91.9 fL 92.9 fL Mean Corpuscular Hemoglobin 31.5 pg 30.8 pg Mean Corpuscular Hemoglobin Concent 34.2 g/dl 33.2 g/dl Platelet Count 219 K/uL 182 K/uL Mean Platelet Volume 8.9 fL 9.5 fL Neutrophils (%) (Auto) 60.1 % Lymphocytes (%) (Auto) 31.1 % Monocytes (%) (Auto) 7.5 % Eosinophils (%) (Auto) 1.1 % Basophils (%) (Auto) 0.1 % Neutrophils # (Auto) 4.49 K/uL Lymphocytes # (Auto) 2.32 K/uL Monocytes # (Auto) 0.56 K/uL Eosinophils # (Auto) 0.08 K/uL Basophils # (Auto) 0.01 K/uL RDW Standard Deviation 47.8 fL 48.0 fL RDW Coefficient of Variation 14.1 % 14.1 % Immature Granulocyte % (Auto) 0.1 % Immature Granulocyte # (Auto) 0.01 K/uL Prothrombin Time 11.3 SECONDS Prothromb Time International Ratio 1.1 Activated Partial Thromboplast Time 28.9 SECONDS 43.0 SECONDS Partial Thromboplastin Ratio 1.1 1.7 Sodium Level 147 mmol/L Potassium Level 3.4 mmol/L Chloride Level 113 mmol/L Carbon Dioxide Level 26 mmol/L Anion Gap 8.0 mmol/L Blood Urea Nitrogen 15 mg/dl Creatinine 0.60 mg/dl Est Creatinine Clear Calc Drug Dose 73.9 ml/min Estimated GFR () 105.5 Estimated GFR (Non- 91.1 BUN/Creatinine Ratio 25.6 Random Glucose 93 mg/dl Calcium Level 8.3 mg/dl Magnesium Level 1.9 mg/dl Assessment & Plan This is a 70 year old female with PMH of paroxysmal atrial fibrillation, HTN, depression, chronic cognitive dysfunction brought in by her son due to patient' s worsening mental status Cognitive Decline 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, in the setting of Depression CT head: no acute process TSH, ammonia: negative MRI Brain: no acute process - Neurology consulted PT/OT eval ordered Hallucinations patient with worsening auditory and visual hallucinations as per son possibly related to depression, as well as underlying dementia - Psych consulted - Effexor recommended when stable from cardiac standpoint Paroxysmal Atrial Fibrillation admission EKG showed junctional rhythm yesterday AM, converted to a fib in RVR 130s-140s, asymptomatic, BP borderline apparently, not on anticoagulation - follows with cardiology but patient could not provide Engineering Model Maker's name - RVR did not resolved with Lopressor IV total of 5mg, Diltiazem 10mg IV started on Diltiazem drip and Heparin - off Diltiazem drip since 5am now on usual Coreg Heparin drip continued - awaiting echo TSH normal - Cardiology consulted HTN BP marginal HOLD lisinopril and spironolactone-HCTZ continue Coreg DVT ppx on heparin Disposition pending PT/OT evals pending lives with son discussed with son David he feels that patient would be better from the Psych standpoint if she returns home, open to have home health with services Current Inpatient Medications: Current Inpatient Medications Medications (Trade) Dose Ordered Sig/Fred Route Start Time Stop Time Status Last Admin Dose Admin Sodium Chloride (Nss 1000ml) 1,000 ml @ 80 mls/hr [id number] IV 07/30/16 22:02 08/29/16 22:01 07/31/16 15:03 80 MLS/HR Acetaminophen (Tylenol Tab) 650 mg Q4H PRN PO 07/30/16 22:15 08/29/16 22:14 Al Hydrox/Mg Hydrox/Simethicone (Maalox Max Susp) 15 ml Q4H PRN PO 07/30/16 22:15 08/29/16 22:14 Magnesium Hydroxide (Milk Of Magnesia Susp) 30 ml Q12H PRN PO 07/30/16 22:15 08/29/16 22:14 Ondansetron HCl (Zofran Inj) 4 mg Q6H PRN IV 07/30/16 22:15 08/29/16 22:14 Aspirin (Ecotrin Tab) 81 mg QAM PO 07/31/16 09:00 08/30/16 08:59 08/01/16 07:40 81 MG Polyethylene (Miralax Powder Packet) 17 gm DAILY PRN PO 07/30/16 22:15 08/29/16 22:14 Carvedilol 25 mg 25 mg BID PO 07/31/16 09:00 08/30/16 08:59 08/01/16 07:40 25 MG Heparin Sodium/ Dextrose 500 ml @ 16 mls/hr Q24H PRN IV 07/31/16 12:15 08/30/16 12:14 07/31/16 12:50 15 MLS/HR Diltiazem HCl/ Dextrose (Cardizem Inj/D5 100ml) 125 ml @ 0 mls/hr Q0M PRN IV 07/31/16 14:45 08/30/16 14:44 08/01/16 03:40 10 MLS/HR Gadobutrol (Gadavist) 8.5 mmol UD PRN IV 07/31/16 23:15 08/04/16 23:14
[2016-08-01 15:56] LABS: PARTIAL THROMBOPLASTIN RATIO 1.9
--- NOTE | 2016-08-01 16:04 | Neurology Progress Notes ---
Neurology Progress Note Date of Service Aug 01, 2016. Filiberto Rivera is a 70 year old female with PMH afib, chronic venous insufficiency, HTN, depression, chronic cognitive dysfunction brought in by her son due to patient's worsening mental status according to chart. No family currently in room. She is unable to finish sentences. She also states that she is seeing things in the room that aren't there but not currently. She doesn't think she has any new medications. According to son her medications are given to her as follows. Coreg, lisinopril, and Aldactone/HCTZ. She was on Lexapro but she thought it made her feel funny. He states that she had been complaining about right arm pain. Currently she is eating her lunch but she states she is not sure what she should do next. When questioned about her health history she is unable to tell about pills or previous surgeries but does say she is falling a lot. She states she uses a walker at home. Her son lives with her and she lost her 2 years ago. she states she is feeling better today. denies CP, SOB , abdominal pain, weakness, numbness tingling, N, V, headache, vision changes Objective Date Time Temp Pulse Resp B/P Pulse Ox O2 Delivery O2 Flow Rate FiO2 08/01/16 15:39 36.4 107 20 117/76 95 Room Air 08/01/16 12:00 Room Air 08/01/16 11:31 110/82 08/01/16 11:14 36.4 84 20 96 Room Air 08/01/16 08:00 Room Air 08/01/16 07:20 36.4 94 20 96/63 96 Room Air 08/01/16 04:23 35.5 81 18 106/68 96 Room Air 08/01/16 04:00 95 Room Air 08/01/16 00:00 95 Room Air 07/31/16 23:45 36.9 84 17 117/69 94 Room Air 07/31/16 20:00 95 Room Air 07/31/16 18:45 36.8 105 20 105/71 95 Room Air 07/31/16 16:00 Room Air Last 24 Hours Test 08/01/16 06:44 08/01/16 15:25 White Blood Count 6.12 K/uL Red Blood Count 4.06 M/uL Hemoglobin 12.5 g/dL Hematocrit 37.7 % Mean Corpuscular Volume 92.9 fL Mean Corpuscular Hemoglobin 30.8 pg Mean Corpuscular Hemoglobin Concent 33.2 g/dl RDW Standard Deviation 48.0 fL RDW Coefficient of Variation 14.1 % Platelet Count 182 K/uL Mean Platelet Volume 9.5 fL Activated Partial Thromboplast Time 43.0 SECONDS Partial Thromboplastin Ratio 1.7 Sodium Level 147 mmol/L Potassium Level 3.4 mmol/L Chloride Level 113 mmol/L Carbon Dioxide Level 26 mmol/L Anion Gap 8.0 mmol/L Blood Urea Nitrogen 15 mg/dl Creatinine 0.60 mg/dl Est Creatinine Clear Calc Drug Dose 73.9 ml/min Estimated GFR () 105.5 Estimated GFR (Non- 91.1 BUN/Creatinine Ratio 25.6 Random Glucose 93 mg/dl Calcium Level 8.3 mg/dl Magnesium Level 1.9 mg/dl Imaging: . MRI with and without contrast - No acute intracranial findings 2. No evidence of intracranial mass No evidence of acute or subacute infarction Scattered foci of increased T2 signal within the white matter, likely on a small vessel basis Exam: Physical Exam: Constitutional: appearance nourished, healthy and obese Ears, Nose, Mouth and Throat: mucous membranes moist, no injection and skin normal, eyes normal Cardiovascular: normal S-1 and S-2 and regular rate and rhythm Respiratory: clear to auscultation (CTA) and no rales, rhonchi or wheeze Musculoskeletal: minimal peripheral edema Skin: no stigmata of neurocutaneous disease noted and normal and intact Eyes: extraocular muscles intact (EOMI) and pupils equal, round and reactive to light (PERRL) NEUROLOGIC EXAMINATION: Mental status: Alert and interactive Oriented when given choice of [facility] or hospital [facility], does not know year or president Oriented to person Speech fluent with no evidence of aphasia Cranial Nerves smile eye brow raise symmetric Reflexes: Deep tendon reflexes were symmetrical and graded 2/5. Plantar responses were flexor. Sensory: no deficit to cool touch or vibration Gait/Stance: Posture normal. sitting in bedside chair Strength: hand map plotter biceps triceps 5/5 bilaterally, hip flex plantar flex ext 5/5 bilaterally Current Inpatient Medications Medications (Trade) Dose Ordered Sig/Fred Route Start Time Stop Time Status Last Admin Dose Admin Sodium Chloride (Nss 1000ml) 1,000 ml @ 80 mls/hr [id number] IV 2/28/17 22:02 08/29/16 22:01 07/31/16 15:03 80 MLS/HR Acetaminophen (Tylenol Tab) 650 mg Q4H PRN PO 07/30/16 22:15 08/29/16 22:14 Al Hydrox/Mg Hydrox/Simethicone (Maalox Max Susp) 15 ml Q4H PRN PO 07/30/16 22:15 08/29/16 22:14 Magnesium Hydroxide (Milk Of Magnesia Susp) 30 ml Q12H PRN PO 07/30/16 22:15 08/29/16 22:14 Ondansetron HCl (Zofran Inj) 4 mg Q6H PRN IV 07/30/16 22:15 08/29/16 22:14 Aspirin (Ecotrin Tab) 81 mg QAM PO 07/31/16 09:00 08/30/16 08:59 08/01/16 07:40 81 MG Polyethylene (Miralax Powder Packet) 17 gm DAILY PRN PO 07/30/16 22:15 08/29/16 22:14 Carvedilol 25 mg 25 mg BID PO 07/31/16 09:00 08/30/16 08:59 08/01/16 07:40 25 MG Heparin Sodium/ Dextrose 500 ml @ 16 mls/hr Q24H PRN IV 07/31/16 12:15 08/30/16 12:14 07/31/16 12:50 15 MLS/HR Diltiazem HCl/ Dextrose (Cardizem Inj/D5 100ml) 125 ml @ 0 mls/hr Q0M PRN IV 07/31/16 14:45 08/30/16 14:44 08/01/16 03:40 10 MLS/HR Gadobutrol (Gadavist) 8.5 mmol UD PRN IV 07/31/16 23:15 08/04/16 23:14 Impression 70 year old female with declining mentation Plan 1. MRI with and without brain for any structure or lesions- no acute abnormalities seen 2. TTE pending 3. psychiatry recommend start of antidepressant and follow up for increases with PCP- appears to be depression related since her 4. may benefit from Aricept but with the hallucinations would not start at this time 5. PT/OT for discharge needs 6. labs B12, RPR, urinalysis all WNL 7. home safety needs and should not be left alone during day 8. carotid doppler 9. will see as outpatient neurology Divya Doe PAC schedule in 3-4 weeks I have seen and discussed above patient with Dr Divya Pearl, neurology Pt seen and examined, dementia with prominent language dysfunction suspect AD. Will see pt as outpt to consider additional tx.CHINA Pearl MD
--- NOTE | 2016-08-01 17:49 | Cardiology Consultation ---
Cardiology Consultation Date of Consultation: Aug 01, 2016. Requesting Physician: Dr. Cadena Reason for Consultation: AF Pt evaluation today including: conversation w/ patient, physical exam, lab review, review of studies, review of inpatient medication list History of Present Illness This is a very pleasant 70-year-old woman who has always been a poor historian and currently can provide very little history. I was seeing her for palpitations which she had going back to perhaps 2005, she did have documentation of a wide complex tachycardia at a rate of over 2 50 bpm in the emergency room in 2010, that was treated with adenosine which demonstrated atrial flutter and presumed aberrancy causing a wide complex tachycardia. On echocardiography she had moderate left ventricular dysfunction. We treated her for her cardiomyopathy with carvedilol and lisinopril and she seemed to tolerate them well and had near normalization of her left ventricular function on echocardiography in October 2015. It was not clear how much atrial arrhythmia she had, she had been treated with aspirin therefore rather than anticoagulation. She now returns with worsening of her mental status. That is obvious with my talking to her. Her evaluation so far has shown no obvious cause, MRI has been negative for stroke. She did however go into atrial fibrillation in the [employer] operations division hours of 2016. The rate was somewhat rapid, and she was started on anticoagulation. At the time of my evaluation she has no complaints. Past Medical/Surgical History (1) Hypertension (2) Depression (3) Dementia Family History No pertinent family history Social History Smoking Status: Never Smoker History of Alcohol Use: No Review of Systems Constitutional: No fever, No weakness, No weight loss Respiratory: No cough, No dyspnea on exertion, No shortness of breath, No wheezing Cardiac: No PND, No chest pain, No edema, No orthopnea, No palpitations Abdomen: No GI bleeding, No diarrhea, No nausea, No pain, No vomiting Female : No problem reported Neurologic: No balance problems, No numbness/tingling, No paralysis, No weakness Heme: No abnormal bleeding/bruising, No clotting problems Endo: No fatigue Skin: No problem reported All Other Systems: Reviewed and Negative Allergies Coded Allergies: No Known Allergies (Unverified , 07/30/16) Medications Current Inpatient Medications Medications (Trade) Dose Ordered Sig/Fred Route Start Time Stop Time Status Last Admin Dose Admin Sodium Chloride (Nss 1000ml) 1,000 ml @ 80 mls/hr [id number] IV 07/30/16 22:02 08/29/16 22:01 07/31/16 15:03 80 MLS/HR Acetaminophen (Tylenol Tab) 650 mg Q4H PRN PO 07/30/16 22:15 08/29/16 22:14 Al Hydrox/Mg Hydrox/Simethicone (Maalox Max Susp) 15 ml Q4H PRN PO 07/30/16 22:15 08/29/16 22:14 Magnesium Hydroxide (Milk Of Magnesia Susp) 30 ml Q12H PRN PO 07/30/16 22:15 08/29/16 22:14 Ondansetron HCl (Zofran Inj) 4 mg Q6H PRN IV 07/30/16 22:15 08/29/16 22:14 Aspirin (Ecotrin Tab) 81 mg QAM PO 07/31/16 09:00 08/30/16 08:59 08/01/16 07:40 81 MG Polyethylene (Miralax Powder Packet) 17 gm DAILY PRN PO 07/30/16 22:15 08/29/16 22:14 Carvedilol 25 mg 25 mg BID PO 07/31/16 09:00 08/30/16 08:59 08/01/16 07:40 25 MG Heparin Sodium/ Dextrose 500 ml @ 16 mls/hr Q24H PRN IV 07/31/16 12:15 08/30/16 12:14 07/31/16 12:50 15 MLS/HR Diltiazem HCl/ Dextrose (Cardizem Inj/D5 100ml) 125 ml @ 0 mls/hr Q0M PRN IV 07/31/16 14:45 08/30/16 14:44 08/01/16 03:40 10 MLS/HR Gadobutrol (Gadavist) 8.5 mmol UD PRN IV 07/31/16 23:15 08/04/16 23:14 Physical Exam Vital Signs Past 12 Hours Date Time Temp Pulse Resp B/P Pulse Ox O2 Delivery O2 Flow Rate FiO2 08/01/16 16:00 Room Air 08/01/16 15:39 36.4 107 20 117/76 95 Room Air 08/01/16 12:00 Room Air 08/01/16 11:31 110/82 3/2/17 11:14 36.4 84 20 96 Room Air 08/01/16 08:00 Room Air 08/01/16 07:20 36.4 94 20 96/63 96 Room Air Constitutional: General Apperance: heathly-appearing Level of Distress: NAD Psychiatric: Mental Status: active & alert Head: normocephalic Eyes: EOM: EOMI ENMT: normal ENT inspection, hearing grossly normal Neck: supple, no masses Lungs: Respiratory effort: no dyspnea, good air movement Auscultation: breath sounds normal, no wheezing Cardiovascular: Heart Auscultation: no murmurs, no rubs, no gallops, irregular rate rhythm Peripheral Pulses: Bruits: none appreciated Abdomen: Bowel Sounds: normal Inspection & Palpation: soft, no tenderness, guarding & rebound, no masses Musculoskeletal: normal strength (5/5 throughout) Extremities: no edema Neurologic: Cranial Nerves: grossly intact Sensation: grossly intact Data Laboratory Results: Last 24 Hours Test 08/01/16 06:44 08/01/16 15:25 White Blood Count 6.12 K/uL Red Blood Count 4.06 M/uL Hemoglobin 12.5 g/dL Hematocrit 37.7 % Mean Corpuscular Volume 92.9 fL Mean Corpuscular Hemoglobin 30.8 pg Mean Corpuscular Hemoglobin Concent 33.2 g/dl RDW Standard Deviation 48.0 fL RDW Coefficient of Variation 14.1 % Platelet Count 182 K/uL Mean Platelet Volume 9.5 fL Activated Partial Thromboplast Time 43.0 SECONDS 48.4 SECONDS Partial Thromboplastin Ratio 1.7 1.9 Sodium Level 147 mmol/L Potassium Level 3.4 mmol/L Chloride Level 113 mmol/L Carbon Dioxide Level 26 mmol/L Anion Gap 8.0 mmol/L Blood Urea Nitrogen 15 mg/dl Creatinine 0.60 mg/dl Est Creatinine Clear Calc Drug Dose 73.9 ml/min Estimated GFR () 105.5 Estimated GFR (Non- 91.1 BUN/Creatinine Ratio 25.6 Random Glucose 93 mg/dl Calcium Level 8.3 mg/dl Magnesium Level 1.9 mg/dl Telemetry reviewed: Sinus rhythm until about 2:20 AM on 07/31/2016, initially atrial fibrillation rapid ventricular response and now with a fairly well- controlled heart rate. Assessment & Plan #1. Atrial fibrillation: Although she has a history of atrial fibrillation was not clear that she had frequent episodes. It seems as though she is not very symptomatic with this episode but it may be that she just doesn't remember her symptoms. In any case she has been in it now for more than 24 hours and she may have frequent episodes as an outpatient. Her heart rate at the moment appears to be well-controlled and she is on heparin. I would agree with rate control with carvedilol, which she is currently on, and anticoagulation. I would recommend one of the newer anticoagulants (such as eliquis) rather than heparin unless procedures are planned. #2. Cardiomyopathy: Her cardiomyopathy has almost completely resolved with medical therapy, although I don't know that she was taking at recently. I would continue beta-blockade and Vitor inhibition if possible. Thank you for allowing me to participate in her care.
[2016-08-01] MEDS ORDERED: DILTIAZEM HCL 5 MG/ML 5 ML VIAL IV STA (18:33)
[2016-08-01] MEDS ORDERED: POTASSIUM CHLORIDE 10 MEQ TABCR PO ONE (19:45)
[2016-08-01] MEDS ORDERED: MAGNESIUM SULFATE 1GM / D5W 1 GM in PREMIXED IN D5W 100 ML IV ONE (19:45)
--- NOTE | 2016-08-01 20:21 | DIAGNOSTIC IMAGING REPORT ---
ULTRASOUND OF THE CAROTID ARTERIES CLINICAL HISTORY: Change in mental status. COMPARISON STUDY: No priors. TECHNIQUE: Real-time, grayscale, and color Doppler sonography of the carotid arteries is performed. Images are reviewed in the transverse and longitudinal planes. FINDINGS: Blood pressures were not assessed. The carotid arteries are patent bilaterally and demonstrate antegrade flow. There is minimal atherosclerotic plaque seen. Normal doppler arterial waveforms are seen throughout. Several the cardiac pulsations appear irregular. Velocity measurements are listed below. Common carotid peak systolic velocity (cm/sec): RIGHT: 66 LEFT: 61 ICA proximal peak systolic velocity (cm/sec): RIGHT: 30 LEFT: 33 ICA mid peak systolic velocity (cm/sec): RIGHT: 27 LEFT: 20 ICA distal peak systolic velocity (cm/sec): RIGHT: 39 LEFT: 25 ICA/CC peak systolic ratio: RIGHT: 0.6 LEFT: 0.5 Antegrade flow was shown in the vertebral arteries. The external carotid arteries are patent. IMPRESSION: 1. There is no sonographic evidence of hemodynamically significant stenosis in the right or left carotid arterial system. 2. Antegrade flow is shown in the vertebral arteries. 3. Several of the cardiac pulsations appear irregular. Correlate clinically and with EKG for evidence of arrhythmia. Electronically signed by: Andrew Galloway M.D. 08/01/2016 8:19 PM Dictated Date/Time: 08/01/2016 8:18 PM
[2016-08-01 21:02] LABS: BUN/CREATININE RATIO 23.4 (10-20); CALCIUM 8.4 mg/dl (8.5-10.1); CREATININE 0.87 mg/dl (0.60-1.20); MAGNESIUM 1.9 mg/dl (1.8-2.4); POTASSIUM 3.5 mmol/L (3.5-5.1)
[2016-08-02] VITALS (8 sets, daily range): BP systolic 82–123; BP diastolic 57–75; PULSE 71–120; TEMP 36.3–36.8; O2SAT 95–100
[2016-08-02 07:56] LABS: PARTIAL THROMBOPLASTIN RATIO 1.8
[2016-08-02] MEDS: CARVEDILOL 25 MG TAB PO SCH ×3 (08:27→19:27)
[2016-08-02] MEDS: ASPIRIN 81 MG ECTAB PO SCH (08:28)
[2016-08-02] MEDS ORDERED: HEPARIN IV BOLUS 2,000 UNIT in SYRINGE 0 ML IV ONE (09:00)
[2016-08-02] MEDS: VENLAFAXINE HCL XR 37.5 MG CAPXR PO SCH (09:37)
--- NOTE | 2016-08-02 12:10 | Psychiatric Progress Notes ---
Psychiatric Progress Note Date of Service Aug 02, 2016. Notes ID: Patient reviewed with liaison nurse. Initial consult by Dr. Enriquez dated 07/31 reviewed. Recommendation was to start Effexor XR when medically able. CC: "I think I could use some help with my anxiety" HPI: denies issues overnight, appreciated of larson from her future sister in law ROS: sleep was "OK", appetite fair, started Effexor XR this am MSE: alert, cooperative, oriented, thoughts coherent, NO SI, HI/dumont. Imp: per initial consult Plan: Effexor XR started by primary team 37.5 mg with titration by primary team by 37.5 mg q 3-5 days as necessary/tolerated, probably wouldn't go higher than initial target dose of 112.5 mg (assuming no impact to BP). Would defer to cards/IM on need for serial EKG during titration, QTc may be misleading in case of RBBB.
--- NOTE | 2016-08-02 12:19 | Progress Note ---
Medicine Progress Note Date & Time of Visit: Aug 01, 2016 at 11:20. Subjective noted to have agitation overnight improved this morning son at bedside oriented to person and place denies chest pain, dyspnea, palp Objective Last 8 Hrs Date Time Temp Pulse Resp B/P Pulse Ox O2 Delivery O2 Flow Rate FiO2 08/01/16 08:00 Room Air 08/01/16 07:20 36.4 94 20 96/63 96 Room Air 08/01/16 04:23 35.5 81 18 106/68 96 Room Air 08/01/16 04:00 95 Room Air Physical Exam: General- oriented x 1, not in distress Head- atraumatic Eyes- PERRL, EOMI, anicteric ENT- oropharynx clear Neck- supple, no JVD, no adenopathy, no thyromegaly Lungs- clear breath sounds bilaterally Heart- tachycardic, irregularly, irregular rhythm; no murmurs Abdomen- normal bowel sounds, soft, nontender Extremities- no pretibial edema, no calf tenderness Neuro- alert, oriented x 1; EOMI; no facial palsy; no dysarthria; motor 5/5 bilaterally; sensation 100% Psych- normal affect, denies hallucinations Skin- warm & dry Laboratory Results: Last 24 Hours Test 07/31/16 12:15 07/31/16 12:55 08/01/16 06:44 White Blood Count 7.47 K/uL 6.12 K/uL Red Blood Count 4.45 M/uL 4.06 M/uL Hemoglobin 14.0 g/dL 12.5 g/dL Hematocrit 40.9 % 37.7 % Mean Corpuscular Volume 91.9 fL 92.9 fL Mean Corpuscular Hemoglobin 31.5 pg 30.8 pg Mean Corpuscular Hemoglobin Concent 34.2 g/dl 33.2 g/dl Platelet Count 219 K/uL 182 K/uL Mean Platelet Volume 8.9 fL 9.5 fL Neutrophils (%) (Auto) 60.1 % Lymphocytes (%) (Auto) 31.1 % Monocytes (%) (Auto) 7.5 % Eosinophils (%) (Auto) 1.1 % Basophils (%) (Auto) 0.1 % Neutrophils # (Auto) 4.49 K/uL Lymphocytes # (Auto) 2.32 K/uL Monocytes # (Auto) 0.56 K/uL Eosinophils # (Auto) 0.08 K/uL Basophils # (Auto) 0.01 K/uL RDW Standard Deviation 47.8 fL 48.0 fL RDW Coefficient of Variation 14.1 % 14.1 % Immature Granulocyte % (Auto) 0.1 % Immature Granulocyte # (Auto) 0.01 K/uL Prothrombin Time 11.3 SECONDS Prothromb Time International Ratio 1.1 Activated Partial Thromboplast Time 28.9 SECONDS 43.0 SECONDS Partial Thromboplastin Ratio 1.1 1.7 Sodium Level 147 mmol/L Potassium Level 3.4 mmol/L Chloride Level 113 mmol/L Carbon Dioxide Level 26 mmol/L Anion Gap 8.0 mmol/L Blood Urea Nitrogen 15 mg/dl Creatinine 0.60 mg/dl Est Creatinine Clear Calc Drug Dose 73.9 ml/min Estimated GFR () 105.5 Estimated GFR (Non- 91.1 BUN/Creatinine Ratio 25.6 Random Glucose 93 mg/dl Calcium Level 8.3 mg/dl Magnesium Level 1.9 mg/dl Assessment & Plan This is a 70 year old female with PMH of paroxysmal atrial fibrillation, HTN, depression, chronic cognitive dysfunction brought in by her son due to patient' s worsening mental status Cognitive Decline possible underlying Alzheimer dementia, in the setting of Depression CT head: no acute process TSH, ammonia: negative - Neurology consulted PT/OT Hallucinations patient with worsening auditory and visual hallucinations as per son possibly related to depression, as well as underlying dementia - Psych consulted Paroxysmal Atrial Fibrillation admission EKG showed junctional rhythm early this morning, converted to a fib in RVR, asymptomatic, BP borderline apparently, not on anticoagulation - follows with cardiology but patient could not provide Title Lawyer's name - received usual Coreg 25mg this morning ordered NSS 500cc bolus with Lopressor 2.5mg IV - will consult Cardiology obtain echo HTN BP marginal HOLD lisinopril and spironolactone-HCTZ continue Coreg DVT ppx Lovenox Disposition pending PT/OT evals Current Inpatient Medications: Current Inpatient Medications Medications (Trade) Dose Ordered Sig/Fred Route Start Time Stop Time Status Last Admin Dose Admin Sodium Chloride (Nss 1000ml) 1,000 ml @ 80 mls/hr [id number] IV 07/30/16 22:02 08/29/16 22:01 07/31/16 15:03 80 MLS/HR Acetaminophen (Tylenol Tab) 650 mg Q4H PRN PO 07/30/16 22:15 08/29/16 22:14 Al Hydrox/Mg Hydrox/Simethicone (Maalox Max Susp) 15 ml Q4H PRN PO 07/30/16 22:15 08/29/16 22:14 Magnesium Hydroxide (Milk Of Magnesia Susp) 30 ml Q12H PRN PO 07/30/16 22:15 08/29/16 22:14 Ondansetron HCl (Zofran Inj) 4 mg Q6H PRN IV 07/30/16 22:15 08/29/16 22:14 Aspirin (Ecotrin Tab) 81 mg QAM PO 07/31/16 09:00 08/30/16 08:59 08/01/16 07:40 81 MG Polyethylene (Miralax Powder Packet) 17 gm DAILY PRN PO 07/30/16 22:15 08/29/16 22:14 Carvedilol 25 mg 25 mg BID PO 07/31/16 09:00 08/30/16 08:59 08/01/16 07:40 25 MG Heparin Sodium/ Dextrose 500 ml @ 16 mls/hr Q24H PRN IV 07/31/16 12:15 08/30/16 12:14 07/31/16 12:50 15 MLS/HR Diltiazem HCl/ Dextrose (Cardizem Inj/D5 100ml) 125 ml @ 0 mls/hr Q0M PRN IV 07/31/16 14:45 08/30/16 14:44 08/01/16 03:40 10 MLS/HR Gadobutrol (Gadavist) 8.5 mmol UD PRN IV 07/31/16 23:15 08/04/16 23:14
--- NOTE | 2016-08-02 12:27 | Progress Note ---
Medicine Progress Note Date & Time of Visit: Aug 02, 2016 at 12:19. Subjective patient seen sitting up in chair, having lunch seems to be more interactive, expressive today denies chest pain, dyspnea, palpitations, dizziness no abdominal pain, nausea denies other symptoms Objective Last 8 Hrs Date Time Temp Pulse Resp B/P Pulse Ox O2 Delivery O2 Flow Rate FiO2 08/02/16 11:49 36.6 88 16 114/70 100 Room Air 08/02/16 08:12 36.5 71 18 95/63 98 Room Air 08/02/16 08:00 Room Air Physical Exam: General- oriented x 1, not in distress Eyes- anicteric Neck- supple, no JVD Lungs- clear breath sounds bilaterally, no rales Heart- tachycardic, irregularly, irregular rhythm; no murmurs Abdomen- normal bowel sounds, soft, nontender Extremities- mild pretibial edema, no calf tenderness Neuro- alert, oriented x 1; EOMI;no gross focal neurologic deficits Psych- normal affect, denies hallucinations Skin- warm & dry Laboratory Results: Last 24 Hours Test 08/01/16 15:25 08/01/16 20:34 08/02/16 07:20 Activated Partial Thromboplast Time 48.4 SECONDS 45.8 SECONDS Partial Thromboplastin Ratio 1.9 1.8 Sodium Level 143 mmol/L Potassium Level 3.5 mmol/L Chloride Level 109 mmol/L Carbon Dioxide Level 24 mmol/L Anion Gap 10.0 mmol/L Blood Urea Nitrogen 20 mg/dl Creatinine 0.87 mg/dl Est Creatinine Clear Calc Drug Dose 50.9 ml/min Estimated GFR () 77.1 Estimated GFR (Non- 66.6 BUN/Creatinine Ratio 23.4 Random Glucose 103 mg/dl Calcium Level 8.4 mg/dl Magnesium Level 1.9 mg/dl Assessment & Plan This is a 70 year old female with PMH of paroxysmal atrial fibrillation, HTN, depression, chronic cognitive dysfunction brought in by her son due to patient' s worsening mental status Cognitive Decline possible underlying Alzheimer dementia, in the setting of Depression CT head: no acute process TSH, ammonia: negative - Neurology consulted PT/OT: recommending 24 hr care or SNF discussed with son, he is agreeable with SNF case management on board Hallucinations patient with worsening auditory and visual hallucinations as per son possibly related to depression, as well as underlying dementia - Psych consulted - recommend Effexor 37.5mg po daily, uptitrate slowly, not more than 125mg/day monitor EKG for Qt prolongation Paroxysmal Atrial Fibrillation admission EKG showed junctional rhythm noted to have a fib in RVR on hospital day 2 - Co Reg 25mg BID continued will change Heparin to Eliquis - appreciate Dr. Novak's recommendations HTN BP marginal HOLD lisinopril and spironolactone-HCTZ continue Coreg DVT ppx will be on Eliquis Disposition pending transition to Rehab/SNF Current Inpatient Medications: Current Inpatient Medications Medications (Trade) Dose Ordered Sig/Fred Route Start Time Stop Time Status Last Admin Dose Admin Acetaminophen (Tylenol Tab) 650 mg Q4H PRN PO 07/30/16 22:15 08/29/16 22:14 Al Hydrox/Mg Hydrox/Simethicone (Maalox Max Susp) 15 ml Q4H PRN PO 07/30/16 22:15 08/29/16 22:14 Magnesium Hydroxide (Milk Of Magnesia Susp) 30 ml Q12H PRN PO 07/30/16 22:15 08/29/16 22:14 Ondansetron HCl (Zofran Inj) 4 mg Q6H PRN IV 07/30/16 22:15 08/29/16 22:14 Aspirin (Ecotrin Tab) 81 mg QAM PO 07/31/16 09:00 08/30/16 08:59 08/02/16 08:28 81 MG Polyethylene (Miralax Powder Packet) 17 gm DAILY PRN PO 07/30/16 22:15 08/29/16 22:14 Carvedilol 25 mg 25 mg BID PO 07/31/16 09:00 08/30/16 08:59 08/02/16 12:10 25 MG Heparin Sodium/ Dextrose 500 ml @ 17 mls/hr Q24H PRN IV 07/31/16 12:15 08/30/16 12:14 07/31/16 12:50 15 MLS/HR Diltiazem HCl/ Dextrose (Cardizem Inj/D5 100ml) 125 ml @ 0 mls/hr Q0M PRN IV 07/31/16 14:45 08/30/16 14:44 Future Hold 08/01/16 03:40 10 MLS/HR Gadobutrol (Gadavist) 8.5 mmol UD PRN IV 07/31/16 23:15 08/04/16 23:14 Venlafaxine HCl (effeXOR EXTENDED REL CAP) 37.5 mg QAM PO 08/02/16 09:00 09/01/16 08:59 08/02/16 09:37 37.5 MG
[2016-08-02] MEDS ORDERED: APIXABAN 2.5 MG TAB PO ONE (12:31)
--- NOTE | 2016-08-02 15:00 | ECHOCARDIOGRAM REPORT ---
*NOTICE TO RECEIVING [employer] This information is strictly Confidential and protected under [place] law. [place] law prohibits you from making any further disclosure of this information unless further disclosure is expressly permitted by the written consent of the person to whom it pertains or is authorized by law. A general authorization for the release of medical or other information is not sufficient for this purpose. Hospital accepts no responsibility if the information is made available to any other person, INCLUDING THE PATIENT. Interpretation Summary * Name: MARLON SWANSON Study Date: 08/02/2016 10:30 AM BP: 95/63 mmHg * Patient Location: C.2T\S\S235\S\1 HR: 110 * : 1945 (M/d/yyyy) Gender: Female Height: 55 in * Age: 70 yrs Ethnicity: CA Weight: 192 lb * Ordering Physician: Dion Key * Referring Physician: Sarah Blake PA-C * Performed By: Namrata Garcia RDCS * * Reason For Study: AFIB * BSA: 1.7 m2 * History: AFIB * -- Conclusions -- * Compared with 10/28/10 study, mild futher decline in LV systolic function and mitral regurgitation now appears less severe (may be technique related). * The left ventricle is mildly dilated. * There is normal left ventricular wall thickness. * Left ventricular systolic function is moderately reduced. * Ejection Fraction = 40-45%. * There is moderate global hypokinesis of the left ventricle. * There is moderate to severe septal hypokinesis. * There is mild mitral regurgitation. * There is mild tricuspid regurgitation. Procedure Details * A contrast injection of Definity was performed to improve assessment of LV function. * Contrast was injected into an intravenous site in the left arm. * One vial of Definity ultrasound contrast was diluted in normal saline to a total volume of 10 ml. A total of '3' ml of solution was administered during imaging. * Lot # [id number] of Definity utilized for procedure. * Expiration date 1 JUL 20. * The attending nurse who injected the contrast agent was AURORA MALONEY. Left Ventricle * The left ventricle is mildly dilated. * There is normal left ventricular wall thickness. * Ejection Fraction = 40-45%. * Left ventricular systolic function is moderately reduced. * There is moderate global hypokinesis of the left ventricle. * There is moderate to severe septal hypokinesis. Right Ventricle * The right ventricle is normal in size and function. * The right ventricular systolic function is normal. Atria * The left atrium is mildly dilated. * Right atrial size is normal. Mitral Valve * The mitral valve is normal in structure and function. * There is mild mitral regurgitation. Tricuspid Valve * The tricuspid valve is normal in structure and function. * There is mild tricuspid regurgitation. Aortic Valve * The aortic valve is trileaflet. * Aortic valve sclerosis mild, without significant aortic valvular stenosis. * Trace aortic regurgitation. Pulmonic Valve * The pulmonary valve is not well seen, but the Doppler examination is normal without significant regurgitation or stenosis. * There is no significant pulmonary regurgitation. Great Vessels * The aortic root is normal size. * Aortic arch of normal dimension. * No obvious dissection could be visualized. * The pulmonary artery is not well visualized, but is probably normal size. Pericardium/Pleural * There is no pericardial effusion. Great Vessels * The inferior vena cava is mildly dilated. MMode 2D Measurements and Calculations IVSd 1.1 cm IVSs 1.3 cm LVIDd 4.8 cm LVIDs 3.8 cm LVPWd 1.4 cm LVPWs 1.6 cm IVS/LVPW 0.78 FS 20.8 % EDV(Teich) 109.2 ml ESV(Teich) 63.1 ml EF(Teich) 42.2 % EDV(cubed) 112.9 ml ESV(cubed) 56.2 ml EF(cubed) 50.2 % % IVS thick 23.8 % % LVPW thick 21.3 % LV mass(C)d 224.3 grams LV mass(C)dI 130.3 grams/m\S\2 LV mass(C)s 214.7 grams LV mass(C)sI 124.7 grams/m\S\2 SV(Teich) 46.1 ml SI(Teich) 26.8 ml/m\S\2 SV(cubed) 56.7 ml SI(cubed) 32.9 ml/m\S\2 LVAd ap4 24.8 cm\S\2 LVLd ap4 6.6 cm EDV(MOD-sp4) 76.8 ml EDV(sp4-el) 78.5 ml LVAs ap4 18.4 cm\S\2 LVLs ap4 6.1 cm ESV(MOD-sp4) 48.9 ml ESV(sp4-el) 47.6 ml EF(MOD-sp4) 36.4 % EF(sp4-el) 39.4 % LVAd ap2 28.2 cm\S\2 LVLd ap2 7.2 cm EDV(MOD-sp2) 92.7 ml EDV(sp2-el) 94.6 ml LVAs ap2 20.4 cm\S\2 LVLs ap2 6.7 cm ESV(MOD-sp2) 53.6 ml ESV(sp2-el) 52.2 ml EF(MOD-sp2) 42.1 % EF(sp2-el) 44.8 % LVLd %diff 7.5 % EDV(MOD-bp) 86.8 ml LVLs %diff 10.1 % ESV(MOD-bp) 52.7 ml EF(MOD-bp) 39.3 % SV(MOD-sp4) 27.9 ml SI(MOD-sp4) 16.2 ml/m\S\2 SV(MOD-sp2) 39.0 ml SI(MOD-sp2) 22.6 ml/m\S\2 SV(MOD-bp) 34.1 ml SI(MOD-bp) 19.8 ml/m\S\2 SV(sp4-el) 30.9 ml SI(sp4-el) 18.0 ml/m\S\2 SV(sp2-el) 42.4 ml SI(sp2-el) 24.6 ml/m\S\2 Doppler Measurements and Calculations MV E max filippo 75.5 cm/sec MV dec time 0.13 sec Ao V2 max 100.9 cm/sec Ao max PG 4.1 mmHg Ao max PG (full) 2.7 mmHg LV V1 max PG 1.4 mmHg LV V1 max 59.1 cm/sec TR max filippo 181.3 cm/sec
[2016-08-02 15:46] LABS: PARTIAL THROMBOPLASTIN RATIO 1.6
[2016-08-02] MEDS: APIXABAN 2.5 MG TAB PO SCH (19:27)
[2016-08-03 03:39] VITALS: BP 115/70; PULSE 106; TEMP 36.5; O2SAT 99
[2016-08-03 05:57] LABS: HEMATOCRIT 37.4 % (37-47); MEAN CELL VOLUME 92.1 fL (80-100); MEAN CORPUSCULAR HEMOGLOBIN 30.8 pg (25-34); MEAN CORPUSCULAR HGB CONC 33.4 g/dl (32-36); MEAN PLATELET VOLUME 9.4 fL (7.4-10.4); PLATELET COUNT 193 K/uL (130-400); RED BLOOD COUNT 4.06 M/uL (4.2-5.4); WHITE BLOOD COUNT 5.59 K/uL (4.8-10.8)
[2016-08-03 06:12] LABS: PARTIAL THROMBOPLASTIN RATIO 1.1
[2016-08-03 06:23] LABS: CREATININE 0.59 mg/dl (0.60-1.20)
[2016-08-03] MEDS: APIXABAN 2.5 MG TAB PO SCH ×2 (07:44→21:18)
[2016-08-03] MEDS: VENLAFAXINE HCL XR 37.5 MG CAPXR PO SCH (07:44)
[2016-08-03] MEDS: ASPIRIN 81 MG ECTAB PO SCH (07:44)
[2016-08-03] MEDS: CARVEDILOL 25 MG TAB PO SCH ×2 (07:45→21:19)
[2016-08-03 07:57] VITALS: BP 99/68; PULSE 118; TEMP 36.4; O2SAT 96
--- NOTE | 2016-08-03 09:49 | Progress Note ---
Medicine Progress Note Date & Time of Visit: Aug 03, 2016 at 09:44. Subjective patient seen resting in bedside chair pleasant, appears brighter, smiling more states she feels fine today denies dizziness, palpitations, chest pain, dyspnea states mood is fine no other symptoms Objective Last 8 Hrs Date Time Temp Pulse Resp B/P Pulse Ox O2 Delivery O2 Flow Rate FiO2 08/03/16 07:57 36.4 118 20 99/68 96 Room Air 08/03/16 04:00 Room Air 08/03/16 03:39 36.5 106 20 115/70 99 Room Air Physical Exam: General- oriented x 1, not in distress Eyes- anicteric Neck- no JVD Lungs- clear breath sounds bilaterally, no rales/wheezes Heart- normal rate, irregularly, irregular rhythm; no murmurs Abdomen- normal bowel sounds, non distended, soft, nontender Extremities- mild pretibial edema, no calf tenderness Neuro- alert, oriented x 1; EOMI;no gross focal neurologic deficits Psych- normal affect, denies hallucinations Skin- warm & dry Laboratory Results: Last 24 Hours Test 08/02/16 15:20 08/03/16 05:31 08/03/16 09:32 Activated Partial Thromboplast Time 41.5 SECONDS 28.1 SECONDS Partial Thromboplastin Ratio 1.6 1.1 White Blood Count 5.59 K/uL Red Blood Count 4.06 M/uL Hemoglobin 12.5 g/dL Hematocrit 37.4 % Mean Corpuscular Volume 92.1 fL Mean Corpuscular Hemoglobin 30.8 pg Mean Corpuscular Hemoglobin Concent 33.4 g/dl RDW Standard Deviation 47.0 fL RDW Coefficient of Variation 14.0 % Platelet Count 193 K/uL Mean Platelet Volume 9.4 fL Creatinine 0.59 mg/dl Est Creatinine Clear Calc Drug Dose 75.4 ml/min Estimated GFR () 106.1 Estimated GFR (Non- 91.6 Assessment & Plan This is a 70 year old female with PMH of paroxysmal atrial fibrillation, HTN, depression, chronic cognitive dysfunction brought in by her son due to patient' s worsening mental status Cognitive Decline possible underlying Alzheimer dementia, in the setting of Depression CT head: no acute process TSH, ammonia: negative - Neurology consulted PT/OT: recommending 24 hr care or SNF discussed with son, he is agreeable with SNF case management on board--> [facility] referral made Hallucinations patient with worsening auditory and visual hallucinations as per son possibly related to depression, as well as underlying dementia - Psych consulted - recommend Effexor 37.5mg po daily, uptitrate slowly, not more than 125mg/day monitor EKG for Qt prolongation check EKG today Paroxysmal Atrial Fibrillation admission EKG showed junctional rhythm noted to have a fib in RVR on hospital day 2 - Co Reg 25mg BID continued transitioned from Heparin to Eliquis (Day 2) [CHADSVASC 3} - heart rate increases to 120s with minimal exertion - may need Co Reg adjustment continue Eliquis SYSTOLIC DYSFUNCTION - (+) mild lower leg edema - echo * -- Conclusions -- * Compared with 10/28/10 study, mild futher decline in LV systolic function and mitral regurgitation now appears less severe (may be technique related). * The left ventricle is mildly dilated. * There is normal left ventricular wall thickness. * Left ventricular systolic function is moderately reduced. * Ejection Fraction = 40-45%. * There is moderate global hypokinesis of the left ventricle. * There is moderate to severe septal hypokinesis. * There is mild mitral regurgitation. * There is mild tricuspid regurgitation. -- possible ischemic etiology? -- continue Aspirin, Co reg awaiting further Cardiology recommendations HTN BP marginal HOLD lisinopril and spironolactone-HCTZ continue Coreg DVT ppx on Eliquis Day 2 Disposition pending management of above conditions in progress [facility] referral made Current Inpatient Medications: Current Inpatient Medications Medications (Trade) Dose Ordered Sig/Fred Route Start Time Stop Time Status Last Admin Dose Admin Acetaminophen (Tylenol Tab) 650 mg Q4H PRN PO 07/30/16 22:15 08/29/16 22:14 Al Hydrox/Mg Hydrox/Simethicone (Maalox Max Susp) 15 ml Q4H PRN PO 07/30/16 22:15 08/29/16 22:14 Magnesium Hydroxide (Milk Of Magnesia Susp) 30 ml Q12H PRN PO 07/30/16 22:15 08/29/16 22:14 Ondansetron HCl (Zofran Inj) 4 mg Q6H PRN IV 07/30/16 22:15 08/29/16 22:14 Aspirin (Ecotrin Tab) 81 mg QAM PO 07/31/16 09:00 08/30/16 08:59 08/03/16 07:44 81 MG Polyethylene (Miralax Powder Packet) 17 gm DAILY PRN PO 07/30/16 22:15 08/29/16 22:14 Carvedilol 25 mg 25 mg BID PO 07/31/16 09:00 08/30/16 08:59 08/03/16 07:45 25 MG Diltiazem HCl/ Dextrose (Cardizem Inj/D5 100ml) 125 ml @ 0 mls/hr Q0M PRN IV 07/31/16 14:45 08/30/16 14:44 Future Hold 08/01/16 03:40 10 MLS/HR Gadobutrol (Gadavist) 8.5 mmol UD PRN IV 07/31/16 23:15 08/04/16 23:14 Venlafaxine HCl (effeXOR EXTENDED REL CAP) 37.5 mg QAM PO 08/02/16 09:00 09/01/16 08:59 08/03/16 07:44 37.5 MG Apixaban (Eliquis Tab) 5 mg BID PO 08/02/16 21:00 09/01/16 20:59 08/03/16 07:44 5 MG
[2016-08-03] MEDS ORDERED: DIGOXIN IV 250 MCG in SYRINGE 9 ML IV ONE (10:15)
[2016-08-03 10:30] LABS: BUN/CREATININE RATIO 25.7 (10-20); CALCIUM 8.6 mg/dl (8.5-10.1); CREATININE 0.68 mg/dl (0.60-1.20); POTASSIUM 4.2 mmol/L (3.5-5.1)
[2016-08-03 12:17] VITALS: BP 109/71; PULSE 94; TEMP 36.8; O2SAT 94
[2016-08-03 15:35] VITALS: BP 145/81; PULSE 84; TEMP 36.5; O2SAT 96
[2016-08-03] MEDS: DIGOXIN 0.25 MG TAB PO SCH (16:11)
[2016-08-03 19:39] VITALS: BP 121/86; PULSE 98; TEMP 36.9; O2SAT 95
[2016-08-03 23:30] VITALS: BP 93/67; PULSE 52; TEMP 36.4; O2SAT 96
[2016-08-04 03:33] VITALS: BP 99/65; PULSE 75; TEMP 36.4; O2SAT 97
[2016-08-04 06:26] LABS: PARTIAL THROMBOPLASTIN RATIO 1.1
[2016-08-04 06:40] LABS: BUN/CREATININE RATIO 28.5 (10-20); CALCIUM 8.2 mg/dl (8.5-10.1); CREATININE 0.68 mg/dl (0.60-1.20); POTASSIUM 3.8 mmol/L (3.5-5.1)
[2016-08-04] MEDS: APIXABAN 2.5 MG TAB PO SCH ×2 (07:56→20:24)
[2016-08-04] MEDS: CARVEDILOL 25 MG TAB PO SCH ×2 (07:57→20:24)
[2016-08-04] MEDS: VENLAFAXINE HCL XR 37.5 MG CAPXR PO SCH (07:57)
[2016-08-04] MEDS: ASPIRIN 81 MG ECTAB PO SCH (07:57)
[2016-08-04 08:30] VITALS: BP 109/75; PULSE 83; TEMP 36.4; O2SAT 96
[2016-08-04 11:59] VITALS: BP 93/59; PULSE 83; TEMP 36.5; O2SAT 95
--- NOTE | 2016-08-04 12:05 | CARDIOLOGY PROGRESS NOTE ---
DATE: 08/04/2016 SUBJECTIVE: Mrs. Corona is resting comfortably in the bedside chair without complaints of chest pain, dyspnea, or palpitations. OBJECTIVE: VITAL SIGNS: Blood pressure 110/75 with an irregular pulse of 80-110. Respiratory rate is 16. The patient is afebrile at 36.4 degrees Celsius. Saturation is 96% on room air. NECK: Supple with full carotid upstrokes. There are no obvious bruits. Jugular venous pressure is flat at 90 degrees. There is no thyromegaly. CARDIOVASCULAR: Reveals an irregular rhythm with distant heart sounds. LUNGS: Clear without rales, rhonchi, or wheeze. ABDOMEN: Soft without bruits. EXTREMITIES: Reveal intact radial artery pulses bilaterally. There is no peripheral edema. DATA: Electrolytes note a sodium of 146, potassium 3.8, chloride 110, bicarb 29, BUN 19, creatinine 0.68, glucose 81. 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 Heart rate is elevated with physical activity. IMPRESSION AND PLAN: 1. Paroxysmal atrial fibrillation -- was initiated on digoxin yesterday. We will give an additional 0.25 mg dose intravenously. Would continue with Eliquis at 5 mg b.i.d. along with carvedilol 25 mg b.i.d. 2. Dynamic cardiomyopathy -- echocardiogram on this hospitalization notes an ejection fraction of 40-45% with global hypokinesis. There is mild mitral and tricuspid regurgitation. This ejection fraction has improved since initiating carvedilol and lisinopril. Review of medications notes that lisinopril has been held. Would restart that medication when able.
[2016-08-04] MEDS: DIGOXIN 0.25 MG TAB PO SCH (15:37)
[2016-08-04 15:56] VITALS: BP 138/76; PULSE 80; TEMP 36.4; O2SAT 94
--- NOTE | 2016-08-04 17:32 | Progress Note ---
Medicine Progress Note Date & Time of Visit: Aug 04, 2016 at 17:27. Subjective seen resting in bedside chair smiling pleasantly confused denies chest pain, dyspnea, weakness no leg pain denies other symptoms states her mood is ok Objective Last 8 Hrs Date Time Temp Pulse Resp B/P Pulse Ox O2 Delivery O2 Flow Rate FiO2 08/04/16 16:00 Room Air 08/04/16 15:56 36.4 80 18 138/76 94 Room Air 08/04/16 15:37 104 08/04/16 12:00 Room Air 08/04/16 11:59 36.5 83 18 93/59 95 Room Air Physical Exam: General- oriented x 1, not in distress Eyes- anicteric Neck- no JVD Lungs- clear breath sounds no rales/wheezes bl Heart- normal rate, irregularly, irregular rhythm; no murmurs Abdomen- normal bowel sounds, non distended, soft, nontender Extremities- grade 1 lower leg edema, no calf tenderness Neuro- alert, oriented x 1; EOMI;no gross focal neurologic deficits Psych- normal affect, denies hallucinations Skin- warm & dry Laboratory Results: Last 24 Hours Test 08/04/16 05:43 Activated Partial Thromboplast Time 28.5 SECONDS Partial Thromboplastin Ratio 1.1 Sodium Level 146 mmol/L Potassium Level 3.8 mmol/L Chloride Level 110 mmol/L Carbon Dioxide Level 29 mmol/L Anion Gap 7.0 mmol/L Blood Urea Nitrogen 19 mg/dl Creatinine 0.68 mg/dl Est Creatinine Clear Calc Drug Dose 65.4 ml/min Estimated GFR () 101.3 Estimated GFR (Non- 87.4 BUN/Creatinine Ratio 28.5 Random Glucose 81 mg/dl Calcium Level 8.2 mg/dl Assessment & Plan This is a 70 year old female with PMH of paroxysmal atrial fibrillation, HTN, depression, chronic cognitive dysfunction brought in by her son due to patient' s worsening mental status Cognitive Decline possible underlying Alzheimer dementia, in the setting of Depression CT head: no acute process TSH, ammonia: negative - Neurology consulted PT/OT: recommending 24 hr care or SNF discussed with son, he is agreeable with SNF case management on board--> [facility] referral made Hallucinations patient with worsening auditory and visual hallucinations as per son possibly related to depression, as well as underlying dementia - Psych consulted - recommend Effexor 37.5mg po daily, uptitrate slowly, not more than 125mg/day monitor EKG for Qt prolongation Paroxysmal Atrial Fibrillation admission EKG showed junctional rhythm noted to have a fib in RVR on hospital day 2 - Co Reg 25mg BID continued transitioned from Heparin to Eliquis (Day 3) [CHADSVASC 3} - Digoxin added - HR Improving continue Eliquis SYSTOLIC DYSFUNCTION - echo * -- Conclusions -- * Compared with 10/28/10 study, mild futher decline in LV systolic function and mitral regurgitation now appears less severe (may be technique related). * The left ventricle is mildly dilated. * There is normal left ventricular wall thickness. * Left ventricular systolic function is moderately reduced. * Ejection Fraction = 40-45%. * There is moderate global hypokinesis of the left ventricle. * There is moderate to severe septal hypokinesis. * There is mild mitral regurgitation. * There is mild tricuspid regurgitation. -- possible ischemic etiology? -- continue Aspirin, Co reg -- (+) leg edema Lasix 20mg po added awaiting further Cardiology recommendations HTN BP marginal HOLD lisinopril and spironolactone-HCTZ Lasix 20mg po one dose today continue Coreg DVT ppx on Eliquis Day 3 Disposition pending management of above conditions in progress [facility] referral made Current Inpatient Medications: Current Inpatient Medications Medications (Trade) Dose Ordered Sig/Fred Route Start Time Stop Time Status Last Admin Dose Admin Acetaminophen (Tylenol Tab) 650 mg Q4H PRN PO 07/30/16 22:15 08/29/16 22:14 Al Hydrox/Mg Hydrox/Simethicone (Maalox Max Susp) 15 ml Q4H PRN PO 07/30/16 22:15 08/29/16 22:14 Magnesium Hydroxide (Milk Of Magnesia Susp) 30 ml Q12H PRN PO 07/30/16 22:15 08/29/16 22:14 Ondansetron HCl (Zofran Inj) 4 mg Q6H PRN IV 07/30/16 22:15 08/29/16 22:14 Aspirin (Ecotrin Tab) 81 mg QAM PO 07/31/16 09:00 08/30/16 08:59 08/04/16 07:57 81 MG Polyethylene (Miralax Powder Packet) 17 gm DAILY PRN PO 07/30/16 22:15 08/29/16 22:14 Carvedilol 25 mg 25 mg BID PO 07/31/16 09:00 08/30/16 08:59 08/04/16 07:57 25 MG Diltiazem HCl/ Dextrose (Cardizem Inj/D5 100ml) 125 ml @ 0 mls/hr Q0M PRN IV 07/31/16 14:45 08/30/16 14:44 Future Hold 08/01/16 03:40 10 MLS/HR Gadobutrol (Gadavist) 8.5 mmol UD PRN IV 07/31/16 23:15 08/04/16 23:14 Venlafaxine HCl (effeXOR EXTENDED REL CAP) 37.5 mg QAM PO 08/02/16 09:00 09/01/16 08:59 08/04/16 07:57 37.5 MG Apixaban (Eliquis Tab) 5 mg BID PO 08/02/16 21:00 09/01/16 20:59 08/04/16 07:56 5 MG Digoxin (Lanoxin Tab) 0.25 mg DAILY@16 PO 08/03/16 16:00 09/02/16 15:59 08/04/16 15:37 0.25 MG
[2016-08-04] MEDS ORDERED: FUROSEMIDE 20 MG TAB PO ONE (18:00)
[2016-08-04 19:56] VITALS: BP 114/52; PULSE 116; TEMP 36.8; O2SAT 95
[2016-08-05] VITALS (7 sets, daily range): BP systolic 109–120; BP diastolic 57–77; PULSE 72–114; TEMP 36.4–36.9; O2SAT 92–97
[2016-08-05 07:29] LABS: MEAN CELL VOLUME 91.3 fL (80-100); MEAN CORPUSCULAR HGB CONC 33.9 g/dl (32-36); MEAN PLATELET VOLUME 9.4 fL (7.4-10.4); PLATELET COUNT 183 K/uL (130-400); RED BLOOD COUNT 4.16 M/uL (4.2-5.4)
[2016-08-05] MEDS: CARVEDILOL 25 MG TAB PO SCH ×2 (07:49→20:07)
[2016-08-05] MEDS: APIXABAN 2.5 MG TAB PO SCH ×2 (07:50→20:07)
[2016-08-05] MEDS: ASPIRIN 81 MG ECTAB PO SCH (07:50)
[2016-08-05] MEDS: VENLAFAXINE HCL XR 37.5 MG CAPXR PO SCH (07:51)
[2016-08-05 08:02] LABS: BUN/CREATININE RATIO 27.7 (10-20); CALCIUM 8.2 mg/dl (8.5-10.1); CREATININE 0.65 mg/dl (0.60-1.20); POTASSIUM 3.9 mmol/L (3.5-5.1)
--- NOTE | 2016-08-05 10:38 | Psychiatric Progress Notes ---
Psychiatric Progress Note Date of Service Aug 05, 2016. Notes ID: Patient reviewed with liaison nurse. Initial consult by Dr. Enriquez dated 07/31 reviewed, Started on Effexor 37.5 mg last week. CC: "I feel sort of blah today" HPI: denies issues overnight, no issues with dumont, denies HECK ROS: sleep was "OK", appetite fair, tolerating Effexor XR. MSE: alert, cooperative, oriented, thoughts coherent, NO SI, HI/dumont. Imp: per initial consult Plan: Effexor XR titration to 75 mg po qam.
[2016-08-05] MEDS: DIGOXIN 0.25 MG TAB PO SCH (16:50)
--- NOTE | 2016-08-05 23:29 | Progress Note ---
Medicine Progress Note Date & Time of Visit: Aug 05, 2016 at 23:26. Subjective patient states she feels fine overall alert, smiling, pleasantly confused denies dyspnea, chest pain, dizziness, weakness no bleeding no other symptoms Objective Last 8 Hrs Date Time Temp Pulse Resp B/P Pulse Ox O2 Delivery O2 Flow Rate FiO2 08/05/16 23:00 36.4 72 17 120/57 96 Room Air 08/05/16 20:04 Room Air 08/05/16 18:57 36.4 87 18 112/66 96 Room Air 08/05/16 16:50 84 Physical Exam: General- oriented x 1, not in distress Neck- no JVD Lungs- clear breath sounds no rales/wheezes bilaterally Heart- normal rate, irregularly, irregular rhythm; no murmurs Abdomen- normal bowel sounds, non distended, soft, nontender Extremities- mild lower leg edema, no calf tenderness Neuro- alert, oriented x 1; EOMI;no gross focal neurologic deficits Psych- normal affect, denies hallucinations Skin- warm & dry Laboratory Results: Last 24 Hours Test 08/05/16 07:15 White Blood Count 6.40 K/uL Red Blood Count 4.16 M/uL Hemoglobin 12.9 g/dL Hematocrit 38.0 % Mean Corpuscular Volume 91.3 fL Mean Corpuscular Hemoglobin 31.0 pg Mean Corpuscular Hemoglobin Concent 33.9 g/dl RDW Standard Deviation 46.6 fL RDW Coefficient of Variation 13.9 % Platelet Count 183 K/uL Mean Platelet Volume 9.4 fL Sodium Level 143 mmol/L Potassium Level 3.9 mmol/L Chloride Level 107 mmol/L Carbon Dioxide Level 27 mmol/L Anion Gap 9.0 mmol/L Blood Urea Nitrogen 18 mg/dl Creatinine 0.65 mg/dl Est Creatinine Clear Calc Drug Dose 68.9 ml/min Estimated GFR () 102.8 Estimated GFR (Non- 88.7 BUN/Creatinine Ratio 27.7 Random Glucose 84 mg/dl Calcium Level 8.2 mg/dl Assessment & Plan This is a 70 year old female with PMH of paroxysmal atrial fibrillation, HTN, depression, chronic cognitive dysfunction brought in by her son due to patient' s worsening mental status Cognitive Decline possible underlying Alzheimer dementia, in the setting of Depression CT head: no acute process TSH, ammonia: negative - Neurology consulted PT/OT: recommending 24 hr care or SNF discussed with son, he is agreeable with SNF case management on board--> [facility] referral made Hallucinations patient with worsening auditory and visual hallucinations as per son possibly related to depression, as well as underlying dementia - Psych consulted - recommend Effexor , now increased to 75mg daily, not more than 125mg/day monitor EKG for Qt prolongation Paroxysmal Atrial Fibrillation admission EKG showed junctional rhythm noted to have a fib in RVR on hospital day 2 - Co Reg 25mg BID continued transitioned from Heparin to Eliquis (Day 3) [CHADSVASC 3} - Digoxin added - HR Improved continue Eliquis SYSTOLIC DYSFUNCTION - echo * -- Conclusions -- * Compared with 10/28/10 study, mild futher decline in LV systolic function and mitral regurgitation now appears less severe (may be technique related). * The left ventricle is mildly dilated. * There is normal left ventricular wall thickness. * Left ventricular systolic function is moderately reduced. * Ejection Fraction = 40-45%. * There is moderate global hypokinesis of the left ventricle. * There is moderate to severe septal hypokinesis. * There is mild mitral regurgitation. * There is mild tricuspid regurgitation. -- possible ischemic etiology? -- continue Aspirin, Co reg -- (+) leg edema Lasix 20mg po added -- may need lasix 20mg every other day HTN BP marginal HOLD lisinopril and spironolactone-HCTZ continue Coreg DVT ppx on Eliquis Day 4 Disposition pending management of above conditions in progress [facility] referral made Current Inpatient Medications: Current Inpatient Medications Medications (Trade) Dose Ordered Sig/[facility] Route Start Time Stop Time Status Last Admin Dose Admin Acetaminophen (Tylenol Tab) 650 mg Q4H PRN PO 07/30/16 22:15 08/29/16 22:14 Al Hydrox/Mg Hydrox/Simethicone (Maalox Max Susp) 15 ml Q4H PRN PO 07/30/16 22:15 08/29/16 22:14 Magnesium Hydroxide (Milk Of Magnesia Susp) 30 ml Q12H PRN PO 07/30/16 22:15 08/29/16 22:14 Ondansetron HCl (Zofran Inj) 4 mg Q6H PRN IV 07/30/16 22:15 08/29/16 22:14 Aspirin (Ecotrin Tab) 81 mg QAM PO 07/31/16 09:00 08/30/16 08:59 08/05/16 07:50 81 MG Polyethylene (Miralax Powder Packet) 17 gm DAILY PRN PO 07/30/16 22:15 08/29/16 22:14 Carvedilol 25 mg 25 mg BID PO 07/31/16 09:00 08/30/16 08:59 08/05/16 20:07 25 MG Diltiazem HCl/ Dextrose (Cardizem Inj/D5 100ml) 125 ml @ 0 mls/hr Q0M PRN IV 07/31/16 14:45 08/30/16 14:44 Future Hold 08/01/16 03:40 10 MLS/HR Apixaban (Eliquis Tab) 5 mg BID PO 08/02/16 21:00 09/01/16 20:59 08/05/16 20:07 5 MG Digoxin (Lanoxin Tab) 0.25 mg DAILY@16 PO 08/03/16 16:00 09/02/16 15:59 08/05/16 16:50 0.25 MG Venlafaxine HCl (effeXOR EXTENDED REL CAP) 75 mg QAM PO 08/06/16 09:00 09/05/16 08:59
[2016-08-06 03:12] VITALS: BP 114/72; PULSE 74; TEMP 36.6; O2SAT 95
[2016-08-06 07:28] LABS: HEMATOCRIT 37.2 % (37-47); MEAN CELL VOLUME 91.2 fL (80-100); MEAN CORPUSCULAR HEMOGLOBIN 30.9 pg (25-34); MEAN CORPUSCULAR HGB CONC 33.9 g/dl (32-36); MEAN PLATELET VOLUME 9.2 fL (7.4-10.4); PLATELET COUNT 185 K/uL (130-400); RED BLOOD COUNT 4.08 M/uL (4.2-5.4); WHITE BLOOD COUNT 5.56 K/uL (4.8-10.8)
[2016-08-06 07:56] LABS: BUN/CREATININE RATIO 30.8 (10-20); CALCIUM 8.3 mg/dl (8.5-10.1); CREATININE 0.59 mg/dl (0.60-1.20); POTASSIUM 3.8 mmol/L (3.5-5.1)
[2016-08-06 08:00] VITALS: BP 98/64; PULSE 74; TEMP 36.7; O2SAT 94
[2016-08-06] MEDS: CARVEDILOL 25 MG TAB PO SCH ×2 (08:01→20:42)
[2016-08-06] MEDS: ASPIRIN 81 MG ECTAB PO SCH (08:01)
[2016-08-06] MEDS: VENLAFAXINE HCL XR 75 MG CAPXR PO SCH (08:01)
[2016-08-06] MEDS: APIXABAN 2.5 MG TAB PO SCH ×2 (08:01→20:42)
[2016-08-06 11:32] VITALS: BP 96/60; PULSE 69; TEMP 36.5; O2SAT 94
--- NOTE | 2016-08-06 12:33 | Progress Note ---
Medicine Progress Note Date & Time of Visit: Aug 06, 2016 at 12:31. Subjective sitting up in bedside chair comfortable no symptoms Objective Last 8 Hrs Date Time Temp Pulse Resp B/P Pulse Ox O2 Delivery O2 Flow Rate FiO2 08/06/16 11:32 36.5 69 18 96/60 94 Room Air 08/06/16 08:00 36.7 74 18 98/64 94 08/06/16 08:00 Room Air Physical Exam: General- oriented x 1, not in distress Neck- no JVD Lungs- clear breath sounds no rales/wheezes b/l Heart- normal rate, irregularly, irregular rhythm; no murmurs Abdomen- normal bowel sounds, non distended, soft, nontender Extremities- mild lower leg edema, no calf tenderness Neuro- alert, oriented x 1; EOMI;no gross focal neurologic deficits Psych- normal affect, denies hallucinations Skin- warm & dry Laboratory Results: Last 24 Hours Test 08/06/16 07:08 White Blood Count 5.56 K/uL Red Blood Count 4.08 M/uL Hemoglobin 12.6 g/dL Hematocrit 37.2 % Mean Corpuscular Volume 91.2 fL Mean Corpuscular Hemoglobin 30.9 pg Mean Corpuscular Hemoglobin Concent 33.9 g/dl RDW Standard Deviation 46.4 fL RDW Coefficient of Variation 14.0 % Platelet Count 185 K/uL Mean Platelet Volume 9.2 fL Sodium Level 143 mmol/L Potassium Level 3.8 mmol/L Chloride Level 106 mmol/L Carbon Dioxide Level 29 mmol/L Anion Gap 8.0 mmol/L Blood Urea Nitrogen 18 mg/dl Creatinine 0.59 mg/dl Est Creatinine Clear Calc Drug Dose 75.4 ml/min Estimated GFR () 106.1 Estimated GFR (Non- 91.6 BUN/Creatinine Ratio 30.8 Random Glucose 80 mg/dl Calcium Level 8.3 mg/dl Assessment & Plan This is a 70 year old female with PMH of paroxysmal atrial fibrillation, HTN, depression, chronic cognitive dysfunction brought in by her son due to patient' s worsening mental status Cognitive Decline possible underlying Alzheimer dementia, in the setting of Depression CT head: no acute process TSH, ammonia: negative - Neurology consulted PT/OT: recommending 24 hr care or SNF discussed with son, he is agreeable with SNF case management on board--> [facility] Hallucinations patient with worsening auditory and visual hallucinations as per son possibly related to depression, as well as underlying dementia - Psych consulted - recommend Effexor , now increased to 75mg daily, not more than 125mg/day monitor EKG for Qt prolongation per Psych;Effexor XR started by primary team 37.5 mg with titration by primary team by 37.5 mg q 3-5 days as necessary/tolerated, probably wouldn't go higher than initial target dose of 112.5 mg (assuming no impact to BP). Would defer to cards/IM on need for serial EKG during titration, QTc may be misleading in case of RBBB. Paroxysmal Atrial Fibrillation admission EKG showed junctional rhythm noted to have a fib in RVR on hospital day 2 - usual Co Reg 25mg BID continued transitioned from Heparin to Eliquis (Day 3) [CHADSVASC 3} - Digoxin added for better HR control - HR Improved continue Eliquis SYSTOLIC DYSFUNCTION - echo * -- Conclusions -- * Compared with 10/28/10 study, mild futher decline in LV systolic function and mitral regurgitation now appears less severe (may be technique related). * The left ventricle is mildly dilated. * There is normal left ventricular wall thickness. * Left ventricular systolic function is moderately reduced. * Ejection Fraction = 40-45%. * There is moderate global hypokinesis of the left ventricle. * There is moderate to severe septal hypokinesis. * There is mild mitral regurgitation. * There is mild tricuspid regurgitation. -- possible ischemic etiology? -- continue Aspirin, Co reg -- (+) leg edema Lasix 20mg po added - leg edema improved per son, patient has leg edema at home -- may need lasix 20mg 2x a week HTN BP marginal HOLD lisinopril and spironolactone-HCTZ continue Coreg DVT ppx on Eliquis Disposition pending management of above conditions in progress [facility] referral made Current Inpatient Medications: Current Inpatient Medications Medications (Trade) Dose Ordered Sig/Fred Route Start Time Stop Time Status Last Admin Dose Admin Acetaminophen (Tylenol Tab) 650 mg Q4H PRN PO 07/30/16 22:15 08/29/16 22:14 Al Hydrox/Mg Hydrox/Simethicone (Maalox Max Susp) 15 ml Q4H PRN PO 07/30/16 22:15 08/29/16 22:14 Magnesium Hydroxide (Milk Of Magnesia Susp) 30 ml Q12H PRN PO 07/30/16 22:15 08/29/16 22:14 Ondansetron HCl (Zofran Inj) 4 mg Q6H PRN IV 07/30/16 22:15 08/29/16 22:14 Aspirin (Ecotrin Tab) 81 mg QAM PO 07/31/16 09:00 08/30/16 08:59 08/06/16 08:01 81 MG Polyethylene (Miralax Powder Packet) 17 gm DAILY PRN PO 07/30/16 22:15 08/29/16 22:14 Carvedilol 25 mg 25 mg BID PO 07/31/16 09:00 08/30/16 08:59 08/06/16 08:01 25 MG Diltiazem HCl/ Dextrose (Cardizem Inj/D5 100ml) 125 ml @ 0 mls/hr Q0M PRN IV 07/31/16 14:45 08/30/16 14:44 Future Hold 08/01/16 03:40 10 MLS/HR Apixaban (Eliquis Tab) 5 mg BID PO 08/02/16 21:00 09/01/16 20:59 08/06/16 08:01 5 MG Digoxin (Lanoxin Tab) 0.25 mg DAILY@16 PO 08/03/16 16:00 09/02/16 15:59 08/05/16 16:50 0.25 MG Venlafaxine HCl (effeXOR EXTENDED REL CAP) 75 mg QAM PO 08/06/16 09:00 09/05/16 08:59 08/06/16 08:01 75 MG
[2016-08-06 16:03] VITALS: BP 96/60; PULSE 69; O2SAT 94
[2016-08-06 16:22] VITALS: BP 109/73; PULSE 80; TEMP 36.3; O2SAT 95
[2016-08-06] MEDS: DIGOXIN 0.25 MG TAB PO SCH (16:32)
[2016-08-06 20:43] VITALS: PULSE 84
[2016-08-07 00:32] VITALS: BP 101/66; PULSE 85; TEMP 36.7; O2SAT 93
[2016-08-07 07:15] LABS: HEMATOCRIT 38.9 % (37-47); MEAN CELL VOLUME 91.3 fL (80-100); MEAN CORPUSCULAR HGB CONC 33.9 g/dl (32-36); MEAN PLATELET VOLUME 9.2 fL (7.4-10.4); PLATELET COUNT 192 K/uL (130-400); RED BLOOD COUNT 4.26 M/uL (4.2-5.4); WHITE BLOOD COUNT 6.01 K/uL (4.8-10.8)
[2016-08-07 07:54] VITALS: BP 126/78; PULSE 70; TEMP 36.7; O2SAT 93
[2016-08-07 07:54] LABS: BUN/CREATININE RATIO 32.8 (10-20); CALCIUM 8.7 mg/dl (8.5-10.1); CREATININE 0.53 mg/dl (0.60-1.20); POTASSIUM 4.1 mmol/L (3.5-5.1)
[2016-08-07 08:24] VITALS: O2SAT 93
[2016-08-07] MEDS: VENLAFAXINE HCL XR 75 MG CAPXR PO SCH (08:28)
[2016-08-07] MEDS: ASPIRIN 81 MG ECTAB PO SCH (08:29)
[2016-08-07] MEDS: APIXABAN 2.5 MG TAB PO SCH ×2 (08:29→20:50)
[2016-08-07] MEDS: CARVEDILOL 25 MG TAB PO SCH ×2 (08:29→20:51)
[2016-08-07 15:57] VITALS: BP 128/76; PULSE 86; TEMP 36.9; O2SAT 94
[2016-08-07 16:20] VITALS: O2SAT 94
[2016-08-07] MEDS: DIGOXIN 0.25 MG TAB PO SCH (17:11)
--- NOTE | 2016-08-07 19:18 | Progress Note ---
Internal Med Progress Note Date of Service: Aug 07, 2016. Provider Documentation: SUBJECTIVE: offers no complain , no agitation no complain of SOB or chest pain no fever or chills OBJECTIVE: Vital Signs-as noted below Exam: General-not in distress Neck- no thyromegaly, trachea midline Lungs- clear breath sounds no rales/wheezes b/l Heart- normal rate, irregularly, irregular rhythm; no murmurs Abdomen- normal bowel sounds, non distended, soft, nontender Extremities- mild lower leg edema, no calf tenderness Neuro- alert, oriented x 1; EOMI;no gross focal neurologic deficits Psych- normal affect, denies hallucinations Skin- warm & dry Lab data as noted below. ASSESSMENT & PLAN: Cognitive Decline possible underlying Alzheimer dementia, in the setting of Depression CT head: no acute process TSH, ammonia: negative - Neurology consult appreciated PT/OT: recommending 24 hr care or SNF discussed with son, he is agreeable with SNF case management on board--> [facility] referral made, awaiting acceptance Hallucinations -symptom has resolved patient with worsening auditory and visual hallucinations as per son possibly related to depression, as well as underlying dementia - Psych consulted - recommend Effexor , dose increased to 75mg daily, not more than 125mg/day monitor EKG for Qt prolongation Paroxysmal Atrial Fibrillation - on Coreg 25mg BID on Eliquis [CHADSVASC 3} - Digoxin -appreciate cardiology eval SYSTOLIC DYSFUNCTION - echo * The left ventricle is mildly dilated. * There is normal left ventricular wall thickness. * Left ventricular systolic function is moderately reduced. * Ejection Fraction = 40-45%. * There is moderate global hypokinesis of the left ventricle. * There is moderate to severe septal hypokinesis. * There is mild mitral regurgitation. * There is mild tricuspid regurgitation. -- continue Aspirin, Coreg - Lasix 20mg 2x a week HTN continue Coreg DVT ppx on Eliquis DISPOSITION will need rehab referral made for [facility] Vital Signs: Date Time Temp Pulse Resp B/P Pulse Ox O2 Delivery O2 Flow Rate FiO2 08/08/16 16:13 72 08/08/16 15:23 36.5 69 16 113/55 95 Room Air 08/08/16 09:15 94 Room Air 08/08/16 08:09 36.3 66 16 113/72 95 Room Air 08/08/16 00:00 36.8 91 20 110/62 94 Room Air 08/08/16 00:00 94 Room Air Lab Results: Results Past 24 Hours Test 08/08/16 06:08 Range/Units Sodium Level 143 136-145 mmol/L Potassium Level 3.7 3.5-5.1 mmol/L Chloride Level 106 98-107 mmol/L Carbon Dioxide Level 29 21-32 mmol/L Anion Gap 8.0 3-11 mmol/L Blood Urea Nitrogen 17 7-18 mg/dl Creatinine 0.61 0.60-1.20 mg/dl Est Creatinine Clear Calc Drug Dose 72.9 ml/min Estimated GFR () 105.0 Estimated GFR (Non- 90.6 BUN/Creatinine Ratio 27.5 10-20 Random Glucose 92 70-99 mg/dl Calcium Level 8.3 8.5-10.1 mg/dl
[2016-08-07] MEDS ORDERED: NURSING DECISION MEDICATION ORDER ONE (21:00)
[2016-08-07] MEDS ORDERED: MICONAZOLE NITRATE POWDER 43 GM EXT PRN (21:15)
[2016-08-08] VITALS: BP 110/62; PULSE 91; TEMP 36.8; O2SAT 94
[2016-08-08 07:23] LABS: BUN/CREATININE RATIO 27.5 (10-20); CALCIUM 8.3 mg/dl (8.5-10.1); CREATININE 0.61 mg/dl (0.60-1.20); POTASSIUM 3.7 mmol/L (3.5-5.1)
[2016-08-08 08:09] VITALS: BP 113/72; PULSE 66; TEMP 36.3; O2SAT 95
[2016-08-08] MEDS: CARVEDILOL 25 MG TAB PO SCH ×2 (08:13→22:09)
[2016-08-08] MEDS: VENLAFAXINE HCL XR 75 MG CAPXR PO SCH (08:14)
[2016-08-08] MEDS: ASPIRIN 81 MG ECTAB PO SCH (08:14)
[2016-08-08] MEDS: APIXABAN 2.5 MG TAB PO SCH ×2 (08:14→22:08)
[2016-08-08 09:15] VITALS: O2SAT 94
[2016-08-08 14:00] VITALS: BP 122/64
[2016-08-08 15:23] VITALS: BP 113/55; PULSE 69; TEMP 36.5; O2SAT 95
[2016-08-08] MEDS: DIGOXIN 0.25 MG TAB PO SCH (16:13)
--- NOTE | 2016-08-08 16:31 | Progress Note ---
Internal Med Progress Note Date of Service: Aug 08, 2016. Provider Documentation: SUBJECTIVE: sitting up on chair denies of any hallucination no sign of agitation no complain of chest pain or SOB appetite fair wants to go home OBJECTIVE: Vital Signs-as noted below Exam: General-no sign of distress Eyes-sclera non icteric ENT-NAD Neck-no thyromegaly Lungs-CTA Heart-irregular Abdomen-soft, non tender Extremities-trace lower ext edema Neuro-baseline dementia ,no focal neurological deficit Lab data as noted below. ASSESSMENT & PLAN: Cognitive Decline possible underlying Alzheimer dementia, in the setting of Depression CT head: no acute process TSH, ammonia: negative - Neurology consult appreciated PT/OT: recommending 24 hr care or SNF discussed with son, he is agreeable with SNF case management on board--> [facility] referral made, awaiting acceptance Hallucinations -symptom has resolved patient with worsening auditory and visual hallucinations as per son possibly related to depression, as well as underlying dementia - Psych consulted - recommend Effexor , dose increased to 75mg daily, not more than 125mg/day monitor EKG for Qt prolongation Paroxysmal Atrial Fibrillation - on Coreg 25mg BID on Eliquis [CHADSVASC 3} - Digoxin -appreciate cardiology eval SYSTOLIC DYSFUNCTION - echo * The left ventricle is mildly dilated. * There is normal left ventricular wall thickness. * Left ventricular systolic function is moderately reduced. * Ejection Fraction = 40-45%. * There is moderate global hypokinesis of the left ventricle. * There is moderate to severe septal hypokinesis. * There is mild mitral regurgitation. * There is mild tricuspid regurgitation. -- continue Aspirin, Coreg -resumed ACEI with low dose -Lisinopril 2.5 mg PO daily Lasix 20mg 2x a week HTN continue Coreg DVT ppx on Eliquis DISPOSITION will need rehab referral made for [facility] Vital Signs: Date Time Temp Pulse Resp B/P Pulse Ox O2 Delivery O2 Flow Rate FiO2 08/08/16 16:13 72 08/08/16 15:23 36.5 69 16 113/55 95 Room Air 08/08/16 09:15 94 Room Air 08/08/16 08:09 36.3 66 16 113/72 95 Room Air 08/08/16 00:00 36.8 91 20 110/62 94 Room Air 08/08/16 00:00 94 Room Air Lab Results: Results Past 24 Hours Test 08/08/16 06:08 Range/Units Sodium Level 143 136-145 mmol/L Potassium Level 3.7 3.5-5.1 mmol/L Chloride Level 106 98-107 mmol/L Carbon Dioxide Level 29 21-32 mmol/L Anion Gap 8.0 3-11 mmol/L Blood Urea Nitrogen 17 7-18 mg/dl Creatinine 0.61 0.60-1.20 mg/dl Est Creatinine Clear Calc Drug Dose 72.9 ml/min Estimated GFR () 105.0 Estimated GFR (Non- 90.6 BUN/Creatinine Ratio 27.5 10-20 Random Glucose 92 70-99 mg/dl Calcium Level 8.3 8.5-10.1 mg/dl
[2016-08-08] MEDS ORDERED: ELQ25 PO (19:25)
[2016-08-08] MEDS ORDERED: MRLP17X PO (19:25)
[2016-08-08] MEDS ORDERED: LSN25 PO (19:25)
[2016-08-08] MEDS ORDERED: LNX25 PO (19:25)
[2016-08-08] MEDS ORDERED: CRG25 PO (19:25)
[2016-08-08] MEDS ORDERED: EFFSR75 PO (19:25)
--- NOTE | 2016-08-08 19:27 | Discharge Instructions ---
Discharge Instructions Date of Service Aug 08, 2016. Admission Reason for Admission: Cognitive Changes, Hypertension Discharge Discharge Diagnosis / Problem: DEMENTIA /DEPRESSION /AFIB /CHF WITH SYSTOLIC DYSFUNCTION Discharge Goals Goal(s): Increase independence, Improve disease control, Diagnostic testing, Therapeutic intervention Activity Recommendations Activity Level: Assistance Required Therapies: Physical Therapy, Occupational Therapy . Additional Information Patient informed of condition: Yes Advance Directives: No DNR: No Level of Care: Acute Rehab Communicable Disease: No Prognosis: Stable Murray Catheter: No Instructions / Follow-Up Instructions / Follow-Up FOLLOW UP WITH FAMILY PHYSICIAN AFTER DISCHARGE FORM REHAB Current Hospital Diet Patient's current hospital diet: AHA Diet (Heart Healthy) Discharge Diet Recommended Diet: AHA Diet (Heart Healthy) Pending Studies Studies pending at discharge: no Medical Emergencies . Who to Call and When: Medical Emergencies: If at any time you feel your situation is an emergency, please call 911 immediately. . Non-Emergent Contact Non-Emergency issues call your: Primary Care Provider . . "Provider Documentation" section prepared by Herminia Curtis. Core Measure Problem Core Measures: None [place] Drug Monitoring Program Search Results: no issues identified
[2016-08-08] MEDS ORDERED: FURO40TA3 PO (19:29)
[2016-08-09 00:11] VITALS: BP 137/77; PULSE 93; TEMP 36.7; O2SAT 93
[2016-08-09 07:46] VITALS: BP 132/92; PULSE 67; TEMP 36.4; O2SAT 93
[2016-08-09] MEDS: CARVEDILOL 25 MG TAB PO SCH ×2 (08:09→20:00)
[2016-08-09] MEDS: APIXABAN 2.5 MG TAB PO SCH ×2 (08:09→20:00)
[2016-08-09] MEDS: VENLAFAXINE HCL XR 75 MG CAPXR PO SCH (08:10)
[2016-08-09] MEDS: LISINOPRIL 2.5 MG TAB PO SCH (08:10)
[2016-08-09] MEDS: ASPIRIN 81 MG ECTAB PO SCH (08:10)
[2016-08-09 10:08] VITALS: O2SAT 93
[2016-08-09 15:14] VITALS: BP 122/77; PULSE 77; TEMP 36.5; O2SAT 95
[2016-08-09 16:24] VITALS: O2SAT 94
[2016-08-09] MEDS: DIGOXIN 0.25 MG TAB PO SCH (16:33)
--- NOTE | 2016-08-09 22:02 | Progress Note ---
Internal Med Progress Note Date of Service: Aug 09, 2016. Provider Documentation: SUBJECTIVE: offers no complain no cough or SOB comfortable OBJECTIVE: Vital Signs-as noted below Exam: General-no sign of distress Eyes-sclera non icteric ENT-NAD Neck-no thyromegaly Lungs-CTA Heart-irregular Abdomen-soft, non tender Extremities-trace lower ext edema Neuro-baseline dementia ,no focal neurological deficit Lab data as noted below. ASSESSMENT & PLAN: Cognitive Decline possible underlying Alzheimer dementia, in the setting of Depression CT head: no acute process TSH, ammonia: negative - Neurology consult appreciated PT/OT: recommending 24 hr care or SNF discussed with son, he is agreeable with SNF case management on board--> [facility] referral made, awaiting acceptance Hallucinations -symptom has resolved patient with worsening auditory and visual hallucinations as per son possibly related to depression, as well as underlying dementia - Psych consulted - recommend Effexor , dose increased to 75mg daily, not more than 125mg/day Paroxysmal Atrial Fibrillation - on Coreg 25mg BID on Eliquis [CHADSVASC 3} - Digoxin -appreciate cardiology eval SYSTOLIC DYSFUNCTION - echo * The left ventricle is mildly dilated. * There is normal left ventricular wall thickness. * Left ventricular systolic function is moderately reduced. * Ejection Fraction = 40-45%. * There is moderate global hypokinesis of the left ventricle. * There is moderate to severe septal hypokinesis. * There is mild mitral regurgitation. * There is mild tricuspid regurgitation. -- continue Aspirin, Coreg -resumed ACEI with low dose -Lisinopril 2.5 mg PO daily Lasix 20mg 2x a week HTN continue Coreg DVT ppx on Eliquis DISPOSITION will need rehab accepted at [facility] tx to [facility] tomorrow noon Son will provide transportation Vital Signs: Date Time Temp Pulse Resp B/P Pulse Ox O2 Delivery O2 Flow Rate FiO2 08/09/16 16:33 68 08/09/16 16:24 94 Room Air 08/09/16 15:14 36.5 77 20 122/77 95 Room Air 08/09/16 10:08 93 Room Air 08/09/16 08:00 Room Air 08/09/16 07:46 36.4 67 14 132/92 93 Room Air 08/09/16 00:11 36.7 93 18 137/77 93 Room Air 08/09/16 00:00 Room Air
[2016-08-09 23:39] VITALS: BP 100/64; PULSE 68; TEMP 36.3; O2SAT 97
[2016-08-10] VITALS: O2SAT 94
[2016-08-10] MEDS: APIXABAN 2.5 MG TAB PO SCH (07:57)
[2016-08-10] MEDS: LISINOPRIL 2.5 MG TAB PO SCH (07:58)
[2016-08-10] MEDS: ASPIRIN 81 MG ECTAB PO SCH (07:58)
[2016-08-10] MEDS: VENLAFAXINE HCL XR 75 MG CAPXR PO SCH (07:58)
[2016-08-10] MEDS: CARVEDILOL 25 MG TAB PO SCH (08:00)
[2016-08-10 08:02] VITALS: BP 107/61; PULSE 69; TEMP 36.6; O2SAT 98
[2016-08-10 09:45] VITALS: BP 107/61; PULSE 69; TEMP 36.6; O2SAT 98
--- NOTE | 2016-08-10 10:46 | Psychiatric Progress Notes ---
Psychiatric Progress Note Date of Service Aug 10, 2016. Notes ID: Patient reviewed with liaison nurse. Initial consult by Dr. Enriquez dated 07/31 reviewed, Started on Effexor 37.5 mg then titrated to 75 mg earlier this week. CC: "I guess I'm fine" HPI: denies issues overnight, no issues with dumont, calm ROS: sleep was "OK", appetite fair, tolerating Effexor XR. MSE: alert, cooperative, thoughts coherent, NO SI, HI/dumont. Imp: per initial consult Plan: no immediate indication for Effexor XR titration, would best be assess after 2 weeks of adjustment to SNF placement, remains psychiatrically stable for discharge to medically necessary level of care.
--- NOTE | 2016-08-10 14:57 | Discharge Summary ---
Discharge Summary Date of Service Aug 10, 2016. Discharge Summary Admission Date: Jul 30, 2016 at 22:09 Discharge Date: Aug 10, 2016 Discharge Disposition: residential facility ([facility] ) Principal Diagnosis: DEMENTIA /DEPRESSION /AFIB /CHF WITH SYSTOLIC DYSFUNCTION Consultations: CARDIOLOGY PSYCHIATRY Medication Reconciliation New Medications: Furosemide (Lasix) 40 Mg Tab 20 MG PO UD for 30 Days, TAB lasix 20 mg PO twice a week Lisinopril (Lisinopril) 2.5 Mg Tab 1 TAB PO DAILY for 30 Days, #30 Apixaban (Eliquis) 2.5 Mg Tab 5 MG PO BID for 30 Days, #120 TAB Carvedilol (Carvedilol) 25 Mg Tab 25 MG PO BID for 30 Days, #60 TAB Digoxin (Digoxin) 0.25 Mg Tab 0.25 MG PO DAILY@16 for 30 Days, TAB Polyethylene (Miralax) 17 Gm Pow 17 GM PO DAILY PRN for Constipation for 30 Days Venlafaxine Hcl (Effexor Extended Rel) 75 Mg Capcr 75 MG PO QAM for 30 Days Discontinued Medications: Carvedilol (Coreg) 25 Mg Tab 1 TAB PO BID for 90 Days, #180 TAB 1 Refill Lisinopril (Zestril) 10 Mg Tab 10 MG PO DAILY, TAB Spironolactone & Hydrochloroth (Spironolactone/Hydrochlor) 1 Tab Tab 1 TAB PO DAILY 25-25MG Admission Information HPI (per Admitting provider): This is a 70 year old female with PMH of paroxysmal atrial fibrillation, chronic venous insufficiency, HTN, depression, chronic cognitive dysfunction brought in by her son due to patient's worsening mental status - as per son, she has been having short term memory loss - she is flat and does not answer in complete sentences anymore. She also states that she is seeing things, hallucinating - she sees people taking her pills away - she also sees people who are going to hurt her. Patient's son states that he now has her pill bottles and administers pills to her. To note, he states she takes three pills - Coreg, lisinopril, and Aldactone/HCTZ - she no longer takes Lexapro as she states there is a bad side effect - he states she feels more lethargic with Lexapro. He states that she had been complaining about right arm pain. On examination, patient is flat, reserved and does not make much eye contact. She has no slurring of speech, but does not answer fully, and at times does not make sense with answers. Denies any pain anywhere; no motor dysfunction noted. Physical Exam (per Admitting): General Appearance: no apparent distress, + obese Head: normocephalic, atraumatic ENT: hearing grossly normal Respiratory/Chest: chest non-tender, lungs clear, normal breath sounds, no respiratory distress, no accessory muscle use Cardiovascular: no JVD, no murmur, normal peripheral pulses, + bradycardia Abdomen/GI: normal bowel sounds, non tender, soft Extremities/Musculoskelatal: + pedal edema, + swelling, + pertinent finding (venous stasis, mild ulceration noted on the right lower extremity; not warm to touch, no significant erythema) Neurologic/Psych: alert, + depressed affect (flat affect, does not make eye contact, reserved, not answering in full sentences, no slurring of speech noted , no motor dysfunction noted, ), + disoriented (at times, patient has disorganized thoughts), + pertinent finding Skin: normal color Hospital Course feels fine , no complain of SOB or chest pain ready to be transferred to SNF today son will provide transportation P/E: General-no sign of distress Eyes-sclera non icteric ENT-NAD Neck-no thyromegaly Lungs-CTA Heart-irregular Abdomen-soft, non tender Extremities-trace lower ext edema Neuro-baseline dementia ,no focal neurological deficit A/P: Cognitive Decline possible underlying Alzheimer dementia, in the setting of Depression CT head: no acute process TSH, ammonia: negative - Neurology consult appreciated PT/OT: recommending 24 hr care or SNF discussed with son, he is agreeable with SNF pt will be transferred to [facility] today Hallucinations -symptom has resolved patient with worsening auditory and visual hallucinations as per son possibly related to depression, as well as underlying dementia - Psych consulted - recommend Effexor , dose increased to 75mg daily Paroxysmal Atrial Fibrillation - on Coreg 25mg BID on Eliquis [CHADSVASC 3} - Digoxin -appreciate cardiology eval SYSTOLIC DYSFUNCTION - echo * The left ventricle is mildly dilated. * There is normal left ventricular wall thickness. * Left ventricular systolic function is moderately reduced. * Ejection Fraction = 40-45%. * There is moderate global hypokinesis of the left ventricle. * There is moderate to severe septal hypokinesis. * There is mild mitral regurgitation. * There is mild tricuspid regurgitation. -- continue Aspirin, Coreg -resumed ACEI with low dose -Lisinopril 2.5 mg PO daily Lasix 20mg 2x a week HTN continue Coreg DVT ppx on Eliquis DISPOSITION will need rehab accepted at [facility] tx to [facility] today Total time spent on discharge = 35 MINS This includes examination of the patient, discharge planning, medication reconciliation, and communication with other providers. Discharge Instructions Discharge Instructions Date of Service Aug 08, 2016. Admission Reason for Admission: Cognitive Changes, Hypertension Discharge Discharge Diagnosis / Problem: DEMENTIA /DEPRESSION /AFIB /CHF WITH SYSTOLIC DYSFUNCTION Discharge Goals Goal(s): Increase independence, Improve disease control, Diagnostic testing, Therapeutic intervention Activity Recommendations Activity Level: Assistance Required Therapies: Physical Therapy, Occupational Therapy . Additional Information Patient informed of condition: Yes Advance Directives: No DNR: No Level of Care: Acute Rehab Communicable Disease: No Prognosis: Stable Murray Catheter: No Instructions / Follow-Up Instructions / Follow-Up FOLLOW UP WITH FAMILY PHYSICIAN AFTER DISCHARGE FORM REHAB Current Hospital Diet Patient's current hospital diet: AHA Diet (Heart Healthy) Discharge Diet Recommended Diet: AHA Diet (Heart Healthy) Pending Studies Studies pending at discharge: no Medical Emergencies . Who to Call and When: Medical Emergencies: If at any time you feel your situation is an emergency, please call 911 immediately. . Non-Emergent Contact Non-Emergency issues call your: Primary Care Provider . . "Provider Documentation" section prepared by Herminia Curtis. Core Measure Problem Core Measures: None [place] Drug Monitoring [place] Search Results: no issues identified
== END 2016-08-10 13:15 | DRG 57 ==
LOC: ENRESERVTM → CANRESERV → ENRESERVDT → C.EDB 17:52 → C.MED 22:09 → C.2T 07-31 13:23 → C.MS2W 08-06 15:27
PROVIDERS: ADMIT Family Medicine; ATTEND Hospitalist
DX: G30.9 Alzheimer's disease, unspecified (principal); I42.9 Cardiomyopathy, unspecified; I10 Essential (primary) hypertension; I50.9 Heart failure, unspecified; I48.0 Paroxysmal atrial fibrillation; I87.2 Venous insufficiency (chronic) (peripheral); F32.9 Major depressive disorder, single episode, unspecified; F02.80 Dementia in other diseases classified elsewhere, unspecified severity, without behavioral disturbance, psychotic disturbance, mood disturbance, and anxiety; Z87.891 Personal history of nicotine dependence

== ENCOUNTER → 2016-08-14 | Outpatient (CLI) | payer BC ==
[~2016-08-14] MED LIST changes: -ASPI81TA21 PO; -CARV25TA2 PO; -CHOL100010 PO; +CRG25 PO; +EFFSR75 PO; +ELQ25 PO; -ESCI10TA17 PO; +FURO-85 PO; +FURO40TA3 PO; -LISI-461 PO; +LNX25 PO; +LSN25 PO; -MIRT15TA PO; +MRLP17X PO; -MULTTAB PO; -SPIR1TAB71 PO
[2016-08-16 01:55] LABS: METHYLMALONIC ACID 277 NMOL/L (87-318)
== END ==
LOC: C.LABCC 08:24
PROVIDERS: ATTEND Internal Medicine
DX: F03.90 Unspecified dementia, unspecified severity, without behavioral disturbance, psychotic disturbance, mood disturbance, and anxiety (principal); E53.8 Deficiency of other specified B group vitamins; Z86.79 Personal history of other diseases of the circulatory system; Z51.81 Encounter for therapeutic drug level monitoring; Z79.899 Other long term (current) drug therapy

== ENCOUNTER → 2016-08-20 | Outpatient (CLI) | payer BC ==
[2016-08-20 18:47] LABS: URINE APPEARANCE CLEAR (CLEAR); URINE BILIRUBIN NEG (NEG); URINE COLOR YELLOW; URINE NITRITE NEG (NEG); URINE SPECIFIC GRAVITY 1.019 (1.000-1.030); UROBILINOGEN NEG (NEG)
[2016-08-20 18:53] LABS: MANUAL MICROSCOPIC REQUIRED? NO; REVIEW REQ? YES
== END | disposition home or self-care (01) ==
LOC: C.LABCC 17:39
PROVIDERS: ATTEND Internal Medicine
DX: R41.0 Disorientation, unspecified (principal); R41.82 Altered mental status, unspecified

== ENCOUNTER 2016-09-11 08:03 | Emergency (ER) | payer BC ==
[~2016-09-11 08:03] MED LIST changes: -FURO-85 PO; -FURO40TA3 PO
[2016-09-11] MEDS ORDERED: SODIUM CHLORIDE 0.9% 1000ML 1,000 ML IV STA (08:11)
[2016-09-11 08:13] VITALS: TEMP 36.8; Ht 149.9 cm
--- NOTE | 2016-09-11 08:44 | DIAGNOSTIC IMAGING REPORT ---
SINGLE VIEW CHEST CLINICAL HISTORY: Generalized weakness. Change in mental status. FINDINGS: An AP, portable, upright chest radiograph is compared to study dated 07/30/2016. The examination is degraded by portable technique and patient rotation. The heart is enlarged and there is atherosclerotic calcification of the thoracic and. There is pulmonary vascular congestion. Atelectasis is noted at the left lung base. No airspace consolidation is seen typical for pneumonia and there is no large pleural effusion. No pneumothorax is seen. The skeletal structures are osteopenic. Degenerative change and scoliosis are noted in the thoracic spine. IMPRESSION: Cardiomegaly with evidence of mild congestive failure. Electronically signed by: Andrew Galloway M.D. 09/11/2016 8:42 AM Dictated Date/Time: 09/11/2016 8:41 AM
--- NOTE | 2016-09-11 08:46 | DIAGNOSTIC IMAGING REPORT ---
SINGLE VIEW PELVIS CLINICAL HISTORY: Fall. FINDINGS: An AP portable pelvic radiograph is obtained. No prior studies are available for comparison at the time of dictation. The skeletal structures are osteopenic. There is no radiographic evidence of fracture in the hips or bony pelvis. Moderate to advanced arthritic change is present in the left hip. Mild to moderate arthritic change is noted in the right hip. Sclerotic change is seen in the sacroiliac joints and pubic symphysis. Advanced lumbosacral spondylosis is partially imaged. The overlying soft tissues are normal as visualized. IMPRESSION: Osteopenia and arthritic change as above. There is no radiographic evidence of fracture in the hips or bony pelvis. Electronically signed by: Andrew Galloway M.D. 09/11/2016 8:44 AM Dictated Date/Time: 09/11/2016 8:43 AM
[2016-09-11 08:54] LABS: URINE APPEARANCE CLOUDY (CLEAR); URINE BILIRUBIN NEG (NEG); URINE COLOR YELLOW; URINE EPITHELIAL CELL AUTO >30 /lpf (0-5); URINE NITRITE NEG (NEG); URINE SPECIFIC GRAVITY 1.024 (1.000-1.030); UROBILINOGEN NEG (NEG); ZZURINE CULT IF INDIC CATH YES
--- NOTE | 2016-09-11 08:59 | DIAGNOSTIC IMAGING REPORT ---
CT SCAN OF THE BRAIN WITHOUT IV CONTRAST CLINICAL HISTORY: Generalized weakness. Change in mental status. COMPARISON STUDY: CT of the brain dated 07/30/2016. MRI of the brain dated 07/31/2016. TECHNIQUE: Unenhanced axial CT scan of the brain is performed from the vertex to the skull base. CT DOSE: 614.27 mGy.cm FINDINGS: Brain parenchyma: There are age-related involutional changes noting mild subcortical and periventricular microangiopathic change. There is no hemorrhage, mass effect, or evidence of acute territorial ischemia by CT criteria. Cummins-white matter is preserved. No extra-axial fluid collection is seen. Ventricles, sulci, cisterns: Prominent secondary to involutional change. Intracranial vasculature: There is mild atherosclerotic calcification of the cavernous carotid arteries. Calvarium: Unremarkable. Sinuses and mastoids: There is mild mucosal thickening in the right maxillary antrum. Thickening and sclerosis of the sinus wall suggests chronicity. The remaining visualized paranasal sinuses are clear. The mastoid air cells are well pneumatized. Orbits: The bony orbits are grossly intact. IMPRESSION: There is no hemorrhage, mass effect, or evidence of acute territorial ischemia by CT criteria. Electronically signed by: Andrew Galloway M.D. 09/11/2016 8:57 AM Dictated Date/Time: 09/11/2016 8:55 AM
[2016-09-11] MEDS ORDERED: FURO-85 PO (09:02)
[2016-09-11 09:05] LABS: MANUAL MICROSCOPIC REQUIRED? NO; REVIEW REQ? YES
[2016-09-11 09:10] LABS: URINE MUCUS PRESENT (NONE PRSENT)
[2016-09-11 09:21] LABS: BASO % 0.2 %; BASO ABS # 0.01 K/uL (0-0.2); COMPLETE YES; EOS % 1.4 %; HEMATOCRIT 34.1 % (37-47); IG% 0.3 %; LYMPH % 20.3 %; LYMPH ABS # 1.29 K/uL (1.2-3.4); MEAN CELL VOLUME 92.7 fL (80-100); MEAN CORPUSCULAR HEMOGLOBIN 30.7 pg (25-34); MEAN CORPUSCULAR HGB CONC 33.1 g/dl (32-36); MEAN PLATELET VOLUME 8.8 fL (7.4-10.4); MONO % 9.6 %; NEUT % 68.2 %; PLATELET COUNT 203 K/uL (130-400); RED BLOOD COUNT 3.68 M/uL (4.2-5.4); WHITE BLOOD COUNT 6.37 K/uL (4.8-10.8)
[2016-09-11 09:41] LABS: BLOOD UREA NITROGEN 19 mg/dl (7-18); BUN/CREATININE RATIO 37.3 (10-20); CALCIUM 8.1 mg/dl (8.5-10.1); CARBON DIOXIDE 30 mmol/L (21-32); CHLORIDE 109 mmol/L (98-107); CREATININE 0.52 mg/dl (0.60-1.20); GLUCOSE 95 mg/dl (70-99); POTASSIUM 3.8 mmol/L (3.5-5.1); SODIUM 144 mmol/L (136-145)
--- NOTE | 2016-09-11 10:07 | EMERGENCY ROOM VISIT NOTE ---
History Report prepared by Jayne: Kasie Chatman Under the Supervision of: Dr. Vito Piper D.O. First contact with patient: 08:05 Stated Complaint: FALL History of Present Illness The patient is a 70 year old female who presents to the Emergency Room with complaints of a fall earlier today. She is a dementia patient who lives with her son. The family is waiting to get her placed into a facility. She falls frequently. She usually walks with a cane or a walker. She also fell 4 days ago. She denies being in any pain or having any injuries. The history is limited due to the patient's dementia. Source of History: patient, family History Limited By: dementia Onset: earlier today Position: other (global) Quality: other (fall) Timing: other (episodic) Note: Pt denies any pain or injuries. Review of Systems See HPI for pertinent positives & negatives. A total of 10 systems reviewed and were otherwise negative. Past Medical & Surgical Medical Problems: (1) Cognitive changes (2) Delirium (3) Dementia (4) Depression (5) Hypertension (6) Hypertension Family History No pertinent family history Social History Smoking Status: Never Smoker Alcohol Use: none Drug Use: none Marital Status: Housing Status: lives with family Occupation Status: retired Current/Historical Medications Scheduled Apixaban (Eliquis), 5 MG PO BID Carvedilol (Carvedilol), 25 MG PO BID Digoxin (Digoxin), 0.25 MG PO DAILY@16 Furosemide (Lasix), 20 MG PO 2XWK Lisinopril (Lisinopril), 1 TAB PO DAILY Venlafaxine Hcl (Effexor Extended Rel), 75 MG PO QAM Allergies Coded Allergies: No Known Allergies (Unverified , 09/11/16) Physical Exam Vital Signs Date Time Temp Pulse Resp B/P Pulse Ox O2 Delivery O2 Flow Rate FiO2 09/11/16 08:59 78 18 121/67 96 Room Air 09/11/16 08:15 79 09/11/16 08:13 36.8 65 18 137/53 97 Room Air Physical Exam CONSTITUTIONAL/VITAL SIGNS: Reviewed / noted above. GENERAL: Non-toxic in appearance. INTEGUMENTARY: Warm, dry, and [place]. HEAD: Normocephalic. EYES: without scleral icterus or trauma. ENT/OROPHARYNX: clear and moist. LYMPHADENOPATHY/NECK: Is supple without lymphadenopathy or meningismus. RESPIRATORY: Lungs clear and equal. CARDIOVASCULAR: Regular rate and rhythm. GI/ABDOMEN: Soft and nontender. No organomegaly or pulsatile mass. No rebound or guarding. Normal bowel sounds. EXTREMITIES: Warm and well perfused. BACK: No CVA tenderness. NEUROLOGICAL: Intact without focal deficits. PSYCHIATRIC: normal affect. MUSCULOSKELETAL: Normally developed with good muscle tone. Medical Decision & Procedures ER Provider Diagnostic Interpretation: X ray results and stated below per my interpretation and radiology interpretation. Radiology results as stated below per my review and radiologist interpretation: SINGLE VIEW CHEST CLINICAL HISTORY: Generalized weakness. Change in mental status. FINDINGS: An AP, portable, upright chest radiograph is compared to study dated 07/30/2016. The examination is degraded by portable technique and patient rotation. The heart is enlarged and there is atherosclerotic calcification of the thoracic and. There is pulmonary vascular congestion. Atelectasis is noted at the left lung base. No airspace consolidation is seen typical for pneumonia and there is no large pleural effusion. No pneumothorax is seen. The skeletal structures are osteopenic. Degenerative change and scoliosis are noted in the thoracic spine. IMPRESSION: Cardiomegaly with evidence of mild congestive failure. Electronically signed by: Andrew Galloway M.D. 09/11/2016 8:42 AM Dictated Date/Time: 09/11/2016 8:41 AM SINGLE VIEW PELVIS CLINICAL HISTORY: Fall. FINDINGS: An AP portable pelvic radiograph is obtained. No prior studies are available for comparison at the time of dictation. The skeletal structures are osteopenic. There is no radiographic evidence of fracture in the hips or bony pelvis. Moderate to advanced arthritic change is present in the left hip. Mild to moderate arthritic change is noted in the right hip. Sclerotic change is seen in the sacroiliac joints and pubic symphysis. Advanced lumbosacral spondylosis is partially imaged. The overlying soft tissues are normal as visualized. IMPRESSION: Osteopenia and arthritic change as above. There is no radiographic evidence of fracture in the hips or bony pelvis. Electronically signed by: Andrew Galloway M.D. 09/11/2016 8:44 AM Dictated Date/Time: 09/11/2016 8:[address] SCAN OF THE BRAIN WITHOUT IV CONTRAST CLINICAL HISTORY: Generalized weakness. Change in mental status. COMPARISON STUDY: CT of the brain dated 07/30/2016. MRI of the brain dated 07/31/2016. TECHNIQUE: Unenhanced axial CT scan of the brain is performed from the vertex to the skull base. CT DOSE: 614.27 mGy.cm FINDINGS: Brain parenchyma: There are age-related involutional changes noting mild subcortical and periventricular microangiopathic change. There is no hemorrhage, mass effect, or evidence of acute territorial ischemia by CT criteria. [place]-white matter is preserved. No extra-axial fluid collection is seen. Ventricles, sulci, cisterns: Prominent secondary to involutional change. Intracranial vasculature: There is mild atherosclerotic calcification of the cavernous carotid arteries. Calvarium: Unremarkable. Sinuses and mastoids: There is mild mucosal thickening in the right maxillary antrum. Thickening and sclerosis of the sinus wall suggests chronicity. The remaining visualized paranasal sinuses are clear. The mastoid air cells are well pneumatized. Orbits: The bony orbits are grossly intact. IMPRESSION: There is no hemorrhage, mass effect, or evidence of acute territorial ischemia by CT criteria. Electronically signed by: Andrew Galloway M.D. 09/11/2016 8:57 AM Dictated Date/Time: 09/11/2016 8:55 AM Laboratory Results 09/11/16 09:08 Red Blood Count 3.68, Mean Corpuscular Volume 92.7, Mean Corpuscular Hemoglobin 30.7, Mean Corpuscular Hemoglobin Concent 33.1, Mean Platelet Volume 8.8, Neutrophils (%) (Auto) 68.2, Lymphocytes (%) (Auto) 20.3, Monocytes (%) (Auto) 9.6, Eosinophils (%) (Auto) 1.4, Basophils (%) (Auto) 0.2, Neutrophils # (Auto) 4.35, Lymphocytes # (Auto) 1.29, Monocytes # (Auto) 0.61, Eosinophils # (Auto) 0.09, Basophils # (Auto) 0.01 09/11/16 09:08 Test 09/11/16 08:36 09/11/16 09:08 Urine Color YELLOW Urine Appearance CLOUDY (CLEAR) Urine pH 5.0 (4.5-7.5) Urine Specific [place] 1.024 (1.000-1.030) Urine Protein NEG (NEG) Urine Glucose (UA) NEG (NEG) Urine Ketones NEG (NEG) Urine Occult Blood NEG (NEG) Urine Nitrite NEG (NEG) Urine Bilirubin NEG (NEG) Urine Urobilinogen NEG (NEG) Urine Leukocyte Esterase SMALL (NEG) Urine WBC (Auto) 5-10 /hpf (0-5) Urine Hyaline Casts (Auto) 5-10 /lpf (0-5) Urine Epithelial Cells (Auto) >30 /lpf (0-5) Urine Bacteria (Auto) 1+ (NEG) Urine Renal Epithelial Cells /lpf (0-5) Urine Mucus PRESENT (NONE PRSENT) White Blood Count 6.37 K/uL (4.8-10.8) Red Blood Count 3.68 M/uL (4.2-5.4) Hemoglobin 11.3 g/dL (12.0-16.0) Hematocrit 34.1 % (37-47) Mean Corpuscular Volume 92.7 fL (80-100) Mean Corpuscular Hemoglobin 30.7 pg (25-34) Mean Corpuscular Hemoglobin Concent 33.1 g/dl (32-36) Platelet Count 203 K/uL (130-400) Mean Platelet Volume 8.8 fL (7.4-10.4) Neutrophils (%) (Auto) 68.2 % Lymphocytes (%) (Auto) 20.3 % Monocytes (%) (Auto) 9.6 % Eosinophils (%) (Auto) 1.4 % Basophils (%) (Auto) 0.2 % Neutrophils # (Auto) 4.35 K/uL (1.4-6.5) Lymphocytes # (Auto) 1.29 K/uL (1.2-3.4) Monocytes # (Auto) 0.61 K/uL (0.11-0.59) Eosinophils # (Auto) 0.09 K/uL (0-0.5) Basophils # (Auto) 0.01 K/uL (0-0.2) RDW Standard Deviation 50.2 fL (36.4-46.3) RDW Coefficient of Variation 14.8 % (11.5-14.5) Immature Granulocyte % (Auto) 0.3 % Immature Granulocyte # (Auto) 0.02 K/uL (0.00-0.02) Anion Gap 5.0 mmol/L (3-11) Estimated GFR () 110.6 Estimated GFR (Non- 95.5 BUN/Creatinine Ratio 37.3 (10-20) Calcium Level 8.1 mg/dl (8.5-10.1) Laboratory results as stated above per my review. Medications Administered Medications (Trade) Dose Ordered Sig/Fred Route Start Time Stop Time Status Last Admin Dose Admin Sodium Chloride (Nss 1000ml) 1,000 ml @ 250 mls/hr Q4H STAT IV 09/11/16 08:11 09/11/16 12:10 09/11/16 08:59 250 MLS/HR ECG Indication: other (fall) Rate (beats per minute): 78 Rhythm: atrial fibrillation Findings: no ectopy, other (no acute injury) Comparison ECG Date: Change: no significant change ED Course 0807: Previous medical records were reviewed. The patient was evaluated in room B3B. A complete history and physical examination was performed. 0811: NSS 1000 ml @ 250 mls/hr IV. 1015: On reevaluation, the patient is resting comfortably. I discussed the results and findings with the patient. She verbalized agreement of the treatment plan. She was discharged home. Medical Decision Differential includes close head injury, intracranial bleed, facial trauma, cervical spine trauma, chest and thoracic trauma, abdominal and intra-abdominal trauma, spine neurologic trauma, extremity trauma. This is a 70-year-old female who presents to the ED with a chief complaint of fall. The patient has a history of dementia. She fell at home today. She was brought in for evaluation by the brother. The patient has no specific complaints. Exam reveals no obvious trauma. She does have some areas of old ecchymosis on the right side of her face and on her arms. She has some chronic redness of the lower extremity is. The patient does not appear to be in any distress and has no obvious acute injuries from this morning. CBC and PRP were unremarkable. EKG shows chronic A. fib. Chest x-ray was negative for acute disease. CT scan of the brain is negative for acute disease. Pelvis x-ray is negative for acute disease. The patient was treated with IV fluids. She was told the results. Culture was sent for the urine as it appears contaminated. She is felt to be stable for discharge and outpatient follow-up. Impression Primary Impression: Fall Scribe Attestation The scribe's documentation has been prepared under my direction and personally reviewed by me in its entirety. I confirm that the note above accurately reflects all work, treatment, procedures, and medical decision making performed by me. Departure Information Dispostion Home / Self-Care Referrals No Doctor, Assigned (PCP) Patient Instructions My [facility] Additional Instructions Follow-up with your doctor for further care and evaluation in 1-2 days. Return to the emergency department for worsening or new symptoms or any concerns. You have been examined and treated today on an emergency basis only. This is not a substitute for, or an effort to provide, complete comprehensive medical care. It is impossible to recognize and treat all injuries or illnesses in a single emergency department visit. It is therefore important that you follow up closely with your doctor. Call as soon as possible for an appointment. You will be contacted if your urine culture shows an infection.
[2016-09-11 10:19] VITALS: BP 110/66; PULSE 77; O2SAT 98
== END 2016-09-11 10:37 | disposition home or self-care (01) ==
LOC: EDBD 08:03 → C.EDB 08:05
DX: R29.6 Repeated falls (principal); F03.90 Unspecified dementia, unspecified severity, without behavioral disturbance, psychotic disturbance, mood disturbance, and anxiety; F32.9 Major depressive disorder, single episode, unspecified; I10 Essential (primary) hypertension; Z79.899 Other long term (current) drug therapy

== ENCOUNTER → 2016-11-13 | Outpatient (CLI) | payer BC ==
[~2016-11-13] MED LIST changes: +FURO-85 PO; -MRLP17X PO
--- NOTE | 2016-11-13 11:00 | DIAGNOSTIC IMAGING REPORT ---
ULTRASOUND VENOUS DOPPLER LWR EXT BILA CLINICAL HISTORY: Lower leg edema and redness. COMPARISON STUDY: No previous studies for comparison. FINDINGS: On the left, no intraluminal thrombus was visualized. The veins are fully compressible from the groin to the popliteal vein. The calf veins were not seen. On the right, no thrombus was visualized within the common femoral or superficial femoral veins. The right popliteal vein was incompletely compressible indicative of acute right lower extremity DVT. IMPRESSION: 1. Acute right lower extremity DVT involving the popliteal vein. 2. No evidence of left lower extremity DVT Electronically signed by: Rigo Fontaan M.D. 11/13/2016 10:58 AM Dictated Date/Time: 11/13/2016 10:57 AM
== END | disposition home or self-care (01) ==
LOC: C.ULTR 10:02
PROVIDERS: ATTEND Physician Assistant
DX: L53.9 Erythematous condition, unspecified (principal); R60.0 Localized edema; I73.9 Peripheral vascular disease, unspecified; I82.431 Acute embolism and thrombosis of right popliteal vein

== ENCOUNTER → 2017-01-07 | Outpatient (CLI) | payer BC ==
--- NOTE | 2017-01-07 13:52 | DIAGNOSTIC IMAGING REPORT ---
BILATERAL LOWER EXTREMITY VENOUS DOPPLER HISTORY: History of DVT. BILATERAL LEG EDEMA COMPARISON STUDY: Venous Doppler 11/13/2016. FINDINGS: Echogenic stranding within the right popliteal vein consistent with nonocclusive chronic thrombus. Intermittent flow within the right posterior tibial and peroneal veins suggestive of nonocclusive thrombus. Otherwise, the remaining bilateral lower extremity venous systems are patent. There is a 4.2 x 3.3 x 1.0 cm left popliteal cyst. IMPRESSION: 1. Nonocclusive thrombus seen within the right popliteal vein, right posterior tibial veins, and peroneal veins. This is likely chronic. The popliteal vein thrombosis is improved. 2. No DVT within the left lower extremity. Electronically signed by: Justin Cheney M.D. 01/07/2017 1:51 PM Dictated Date/Time: 01/07/2017 1:22 PM
== END | disposition home or self-care (01) ==
LOC: C.ULTR 12:40
PROVIDERS: ATTEND Physician Assistant
DX: R60.0 Localized edema (principal); Z86.718 Personal history of other venous thrombosis and embolism; I82.431 Acute embolism and thrombosis of right popliteal vein; I82.441 Acute embolism and thrombosis of right tibial vein; I82.890 Acute embolism and thrombosis of other specified veins